=== PATIENT | male | born 1980 | race Caucasian/White ===

== ENCOUNTER → 2017-04-24 | Outpatient (CLI) | payer BC ==
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
== END ==
LOC: SLEEP 16:47
PROVIDERS: ATTEND Internal Medicine Critical Care Medicine
DX: G47.10 Hypersomnia, unspecified (principal); Z91.048 Other nonmedicinal substance allergy status
CPT/HCPCS: 99211

== ENCOUNTER → 2019-06-05 | Outpatient (CLI) | payer BC ==
--- NOTE | 2019-06-05 16:04 | MR ---
EXAMINATION TYPE: MR brain wo/w con DATE OF EXAM: 06/05/2019 COMPARISON: CT brain October 25, 2015 HISTORY: Visual disturbance, headache, dizziness and giddiness. Prior head injury with additional sym ptoms of left-sided hearing loss per patient. TECHNIQUE: Multiplanar, multisequence images of the brain and brainstem is performed without and with IV contras t, utilizing 10 mL intravenous Gadavist . FINDINGS: Diffusion weighted images demonstrate no evidence of a recent infarct or other diffusion ab normality. There is no new worrisome extra-axial fluid collection. The ventricular system and ciste rnal spaces are normal in size and appearance. The brain volume is age appropriate. T2*weighted imag es show no suspicious intraparenchymal blood product. Persistent areas of encephalomalacia over the i nferior bilateral frontal lobes axial image 17. There are few tiny scattered foci of T2 hyperintensit y seen throughout the white matter bilaterally. Approximately 12 small scattered lesions are seen. Le sions are nonspecific in appearance and distribution. Suspect smaller infarct inferior left cerebella r hemisphere axial image 5 not significantly changed from prior CT axial image 11. Midline structures demonstrate normal morphology. The craniocervical junction appears within normal limits. Post contrast images demonstrate no abnormal enhancement. The dural venous sinuses appear pa tent. Mild to moderate mucosal thickening involving ethmoid sinuses bilaterally. 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 No suspicious enhancement is seen.
== END ==
LOC: RADMRIMAIN 14:54
PROVIDERS: ATTEND Family Medicine
DX: I63.9 Cerebral infarction, unspecified (principal)
CPT/HCPCS: 70553; A9585

== ENCOUNTER 2020-05-23 14:05 | Inpatient (IN) | payer BC ==
[2020-05-23] MEDS ORDERED: SODIUM CHLORIDE 0.9% 500 ML 500 ML IV STA (14:16)
[2020-05-23 14:34] LABS: Basophils # (A) 0.1 k/uL (0-0.2); Basophils % (A) 0 %; Eosinophils # (A) 0.3 k/uL (0-0.7); Eosinophils % (A) 2 %; HCT 40.2 % (39.0-53.0); HGB 13.5 gm/dL (13.0-17.5); Lymphocytes # (A) 1.6 k/uL (1.0-4.8); Lymphocytes % (A) 10 %; MCH 29.2 pg (25.0-35.0); MCHC 33.7 g/dL (31.0-37.0); MCV 86.8 fL (80.0-100.0); Mean Platelet Volume 7.5; Monocytes # (A) 0.8 k/uL (0-1.0); Monocytes % (A) 5 %; Neutrophils # (A) 13.3 k/uL (1.3-7.7); Neutrophils % (A) 82 %; Platelet Count 302 k/uL (150-450); RBC 4.63 m/uL (4.30-5.90); RDW 11.6 % (11.5-15.5); WBC 16.2 k/uL (3.8-10.6)
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
[2020-05-23 14:46] LABS: ALT 18 U/L (4-49); AST 27 U/L (17-59); African American GFR (CKD) >90 (>60 ml/min/1.73 sqM); Albumin 3.9 g/dL (3.5-5.0); Alkaline Phosphatase 91 U/L (38-126); Anion Gap 7 mmol/L; Blood Urea Nitrogen 14 mg/dL (9-20); Calcium 8.6 mg/dL (8.4-10.2); Carbon Dioxide 28 mmol/L (22-30); Chloride 102 mmol/L (98-107); Glucose 124 mg/dL (74-99); Non-African American GFR(CKD) >90 (>60 ml/min/1.73 sqM); Potassium 4.1 mmol/L (3.5-5.1); Sodium 137 mmol/L (137-145); Total Bilirubin 0.8 mg/dL (0.2-1.3); Total Protein 7.6 g/dL (6.3-8.2)
[2020-05-23 14:55] LABS: INR 0.9 (<1.2); Partial Thromboplastin Time 22.2 sec (22.0-30.0); Prothrombin Time 9.9 sec (9.0-12.0)
[2020-05-23] MEDS ORDERED: ASPIRIN 81 MG PO STA (14:55)
[2020-05-23] MEDS ORDERED: MORPHINE SULFATE 4 MG/ML SYRINGE IV STA (14:55)
--- NOTE | 2020-05-23 15:17 | CT ---
EXAMINATION TYPE: CT chest angio for PE DATE OF EXAM: 05/23/2020 COMPARISON: None HISTORY: Upper Abdominal pain with shortness of breath. CT DLP: 525.7 mGycm Automated exposure control for dose reduction was used. CONTRAST: Performed with IV Contrast, patient injected with 100 mL of Isovue 370. There are 3-D post processed images. There is left pleural effusion. There is airspace patchy consolidation left lower lobe. There is no p ericardial effusion. There is no mediastinal adenopathy. Thoracic aorta is intact. There is no aneurysm or dissection. There is normal contrast opacification of the pulmonary arteries. There are no filling defects. The bony thorax is intact. Sternum is intact. Upper abdominal soft tissues are intact. IMPRESSION: No evidence of pulmonary embolism. Left lower lobe pneumonia and left pleural effusion. Minimal atele ctasis right posterior lung base.
--- NOTE | 2020-05-23 15:21 | CT ---
EXAMINATION TYPE: CT abdomen pelvis w con DATE OF EXAM: 05/23/2020 COMPARISON: None HISTORY: Upper Abdominal pain with shortness of breath. CT DLP: 1369.9 mGycm Automated exposure control for dose reduction was used. CONTRAST: Performed with IV Contrast, patient injected with 100 mL of Isovue 370. Images obtained from the diaphragm to the floor the pelvis with IV contrast. There is some patchy left lower lobe consolidation. There is mild left pleural effusion. There is antonio e mild atelectasis right posterior lung base. Liver shows no focal defect. Gallbladder appears normal. Spleen is intact. There is no evidence of pa ncreatic mass. Stomach appears intact. There is no adrenal mass. Kidneys show satisfactory contrast opacification. There is no hydronephrosi s. Ureters are not dilated. There is no retroperitoneal adenopathy. The bladder distends smoothly. Th ere is no inguinal hernia. There is no free fluid in the pelvis. There is no mesenteric edema. There is no ascites or free air. Appendix appears normal. There is no evidence of a bowel obstruction. The lumbar vertebra have normal spacing and alignment. There is no compression fracture. Posterior el ements are intact. Bony pelvis is intact. Hip joints appear normal. IMPRESSION: Left lower lobe pneumonia and left pleural effusion. No abnormality within the abdomen and pelvis.
[2020-05-23] MEDS ORDERED: AZITHROMYCIN 500 MG TAB PO STA (15:26)
[2020-05-23] MEDS ORDERED: IBUPROFEN 400 MG TAB PO PRN (16:13)
[2020-05-23] MEDS ORDERED: NALOXONE 0.4 MG/ML 1 ML VIAL IV PRN (16:13)
[2020-05-23] MEDS: SODIUM CHLORIDE 0.9% 1,000 ML IV SCH ×2 (16:46→22:11)
[2020-05-23] MEDS ORDERED: MORPHINE SULFATE 4 MG/ML SYRINGE IV PRN (17:35)
[2020-05-23] MEDS ORDERED: ONDANSETRON 4 MG/2 ML VIAL IVP PRN (17:35)
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
[2020-05-23] MEDS: ACETAMINOPHEN TAB 325 MG TAB PO PRN (18:54)
[2020-05-24] MEDS: KETOROLAC 15 MG/ML 1 ML VIAL IVP PRN ×3 (03:36→16:26)
[2020-05-24] MEDS: CITALOPRAM HYDROBROMIDE 20 MG TAB PO SCH (07:52)
[2020-05-24] MEDS: PANTOPRAZOLE 40 MG TABLET PO SCH (07:53)
[2020-05-24] MEDS: HEPARIN SODIUM,PORCINE 5,000 UNIT/ML 1 ML VIAL SQ SCH ×2 (07:55→20:47)
[2020-05-24] MEDS: IPRATROPIUM-ALBUTEROL 3 ML NEB INHALATION PRN ×4 (08:05→19:50)
[2020-05-24] MEDS: ACETAMINOPHEN TAB 325 MG TAB PO PRN ×3 (08:45→20:47)
--- NOTE | 2020-05-24 09:08 | XR ---
EXAMINATION TYPE: XR chest 1V portable DATE OF EXAM: 05/24/2020 COMPARISON: 10/25/2015 HISTORY: Chest pain TECHNIQUE: Single frontal view of the chest is obtained. FINDINGS: There is left perihilar and left basilar infiltrate with its underlying effusion noted as well. The r ight lung is clear. The cardiac silhouette size is within normal limits. The osseous structures are intact. IMPRESSION: 1. Correlate for underlying pneumonia.
[2020-05-24 09:20] LABS: Basophils % (A) 0 %; Eosinophils # (A) 0.1 k/uL (0-0.7); Eosinophils % (A) 1 %; HGB 12.5 gm/dL (13.0-17.5); Lymphocytes % (A) 6 %; MCH 29.7 pg (25.0-35.0); MCHC 33.8 g/dL (31.0-37.0); MCV 87.9 fL (80.0-100.0); Mean Platelet Volume 7.6; Monocytes # (A) 0.6 k/uL (0-1.0); Monocytes % (A) 4 %; Neutrophils # (A) 14.5 k/uL (1.3-7.7); Neutrophils % (A) 89 %; Platelet Count 229 k/uL (150-450); RBC 4.21 m/uL (4.30-5.90); RDW 12.2 % (11.5-15.5); WBC 16.4 k/uL (3.8-10.6)
[2020-05-24 09:29] LABS: African American GFR (CKD) >90 (>60 ml/min/1.73 sqM); Anion Gap 6 mmol/L; Blood Urea Nitrogen 16 mg/dL (9-20); Calcium 8.3 mg/dL (8.4-10.2); Carbon Dioxide 29 mmol/L (22-30); Chloride 100 mmol/L (98-107); Glucose 175 mg/dL (74-99); Non-African American GFR(CKD) >90 (>60 ml/min/1.73 sqM); Potassium 4.3 mmol/L (3.5-5.1); Sodium 135 mmol/L (137-145)
[2020-05-24] MEDS: SODIUM CHLORIDE 0.9% 1,000 ML IV SCH (10:25)
[2020-05-24] MEDS: AZITHROMYCIN 500 MG TAB PO SCH (12:00)
--- NOTE | 2020-05-24 12:49 | P.PN ---
Subjective Progress Note Date: 05/24/20 Principal diagnosis: Community-acquired pneumonia Patient is doing well today. He still complaining of some shortness of breath. He denies fevers or chills. No acute events overnight reported by nursing staff. Objective - Vital Signs Vital signs: Vital Signs Temp 98.9 F 05/24/20 07:51 Pulse 68 05/24/20 11:52 Resp 18 05/24/20 07:51 BP 118/69 05/24/20 07:51 Pulse Ox 95 05/24/20 03:00 Intake & Output 05/23/20 05/24/20 05/24/20 18:59 06:59 18:59 Intake Total 850 150 Balance 850 150 Weight 97.522 kg Intake: Intake, IV Titration 850 150 Amount Sodium Chloride 0.9% 1, 100 000 ml @ 100 mls/hr IV . Q10H [facility] Rx#:[id number] cefTRIAXone 1 gm In 50 Sodium Chloride 0.9% 50 ml @ 100 mls/hr IVPB [facility] Rx#:[id number] cefTRIAXone 1 gm In 800 50 Sodium Chloride 0.9% 50 ml @ 100 mls/hr IVPB Q24HR [facility] Rx#:[id number] Other: Voiding Method Toilet Toilet # Voids 1 1 1 - Exam General: The patient is awake and alert, in no distress Eye: there is normal conjunctiva bilaterally. Neck: The neck is supple, there is no JVD. Cardiovascular: Normal S1-S2, no S3-S4, no murmurs. Respiratory: Lungs are slightly diminished with no wheezing or crackles Gastrointestinal: Abdomen is soft, nontender Musculoskeletal: There is no pedal edema. Neurological:. Speech is normal. Skin: Skin is warm and dry - Labs CBC & Chem 7: 05/24/20 09:00 05/24/20 09:00 Labs: Abnormal Lab Results - Last 24 Hours (Table) 05/23/20 05/23/20 05/24/20 Range/Units 14:20 14:20 09:00 WBC 16.2 H 16.4 H (3.8-10.6) k/uL RBC 4.21 L (4.30-5.90) m/uL Hgb 12.5 L (13.0-17.5) gm/dL Hct 37.0 L (39.0-53.0) % Neutrophils # 13.3 H 14.5 H (1.3-7.7) k/uL Sodium (137-145) mmol/L Glucose 124 H (74-99) mg/dL Calcium (8.4-10.2) mg/dL 05/24/20 Range/Units 09:00 WBC (3.8-10.6) k/uL RBC (4.30-5.90) m/uL Hgb (13.0-17.5) gm/dL Hct (39.0-53.0) % Neutrophils # (1.3-7.7) k/uL Sodium 135 L (137-145) mmol/L Glucose 175 H (74-99) mg/dL Calcium 8.3 L (8.4-10.2) mg/dL Assessment and Plan Assessment: This is a 39-year-old male with past medical history noted below who presented to the emergency room with left-sided chest pain and shortness of breath. Patient was evaluated in the ER and currently admitted to the hospital for further management of his medical problems noted below. 1. Community-acquired pneumonia, most likely bacterial. Sputum culture sent and pending. Currently on IV ceftriaxone and azithromycin. COVID-19 test pending though clinical suspicion is low 2. Sepsis without septic shock, improved with IV fluid hydration and antibiotic. Lactic acid normal. Blood culture pending. 3. Left pleural effusion: Pulmonology consulted for further evaluation 4. Underlying depression and obstructive sleep apnea: Continue home medications and CPAP at night 5. DVT prophylaxis with subcu heparin Today, I reviewed his medication list and lab work results. Continue current regimen. Discontinue IV fluids. Repeat lab work in the morning. Awaiting pulmonology evaluation.
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
--- NOTE | 2020-05-24 13:16 | P.PN ---
Subjective Progress Note Date: 05/24/20 05/24/2020, the patient is feeling pleuritic left-sided chest pain although less compared to yesterday. His fever is improved. He is producing minimal amount of sputum. He remains on 2 L about 2 by nasal cannula. No altered mentation. No other new complaints otherwise for now. Remains in the same antibiotic coverage including a combination of Zithromax and Rocephin. He is also being given Toradol for his pleuritic left-sided chest pain. He is afebrile this morning at 3 L of oxygen by nasal cannula. Objective - Vital Signs Vital signs: Vital Signs Temp 98.9 F 05/24/20 07:51 Pulse 68 05/24/20 11:52 Resp 18 05/24/20 07:51 BP 118/69 05/24/20 07:51 Pulse Ox 95 05/24/20 03:00 Intake & Output 05/23/20 05/24/20 05/24/20 18:59 06:59 18:59 Intake Total 850 150 Balance 850 150 Weight 97.522 kg Intake: Intake, IV Titration 850 150 Amount Sodium Chloride 0.9% 1, 100 000 ml @ 100 mls/hr IV . Q10H [facility] Rx#:[id number] cefTRIAXone 1 gm In 50 Sodium Chloride 0.9% 50 ml @ 100 mls/hr IVPB ONCE STA Rx#:[id number] cefTRIAXone 1 gm In 800 50 Sodium Chloride 0.9% 50 ml @ 100 mls/hr IVPB Q24HR [facility] Rx#:[id number] Other: Voiding Method Toilet Toilet # Voids 1 1 1 - Exam The patient appeared well nourished and normally developed. Vital signs as doc umented. Head exam is unremarkable. No scleral icterus or corneal arcus noted. Neck is without jugular venous distension, thyromegaly, or carotid bruits. Carotid upstrokes are brisk bilaterally. Lungs are revealing left lower lobe crackles essentially the left lung base along with diminished breath sound left lung base. Cardiac exam reveals the PMI to be normally sized and situated. Rhythm is regular. First and second heart sounds normal. No murmurs, rubs or gallops. Abdominal exam reveals normal bowel sounds, no masses, no organomegaly and no aortic enlargement. Extremities are nonedematous and both femoral and pedal pulses are normal.Examination of the skin revealed no evidence of signifi cant rashes, suspicious appearing nevi or other concerning lesions.Neurologically, the patient is awake and alert and the patient does not have any focal neurological deficit. Cranial nerves are essentially intact. - Labs CBC & Chem 7: 05/24/20 09:00 05/24/20 09:00 Labs: Abnormal Lab Results - Last 24 Hours (Table) 05/23/20 05/23/20 05/24/20 Range/Units 14:20 14:20 09:00 WBC 16.2 H 16.4 H (3.8-10.6) k/uL RBC 4.21 L (4.30-5.90) m/uL Hgb 12.5 L (13.0-17.5) gm/dL Hct 37.0 L (39.0-53.0) % Neutrophils # 13.3 H 14.5 H (1.3-7.7) k/uL Sodium (137-145) mmol/L Glucose 124 H (74-99) mg/dL Calcium (8.4-10.2) mg/dL 05/24/20 Range/Units 09:00 WBC (3.8-10.6) k/uL RBC (4.30-5.90) m/uL Hgb (13.0-17.5) gm/dL Hct (39.0-53.0) % Neutrophils # (1.3-7.7) k/uL Sodium 135 L (137-145) mmol/L Glucose 175 H (74-99) mg/dL Calcium 8.3 L (8.4-10.2) mg/dL Assessment and Plan Plan: 1 left lower lobe pneumonia with secondary sepsis. The patient comes in with acute fever, leukocytosis, left lower lobe consolidation in addition to a small left-sided pleural effusion. No altered mentation. No hypotension Currently on a combination of Rocephin and Zithromax 2 acute leukocytosis 3 acute fever 4 acute hypoxemia currently on 2 L of oxygen by nasal cannula 5 severe sleep apnea with an AHI of 91, currently receiving treatment, the patient is utilizing an APAP on outpatient basis with a minimum pressure of 5 and a maximum pressure of 20 6 history of traumatic brain injury 7 history of depression 8 acid reflux Plan Continue same antibiotic coverage Clinically improving Continue using incentive spirometer Currently afebrile White cell count remains elevated Repeat chest x-ray in the morning We'll continue to follow
[2020-05-24] MEDS ORDERED: AZITHROMYCIN 500 MG in SODIUM CHLORIDE 0.9% 250 ML IVPB SCH (15:00)
[2020-05-24 18:52] LABS: Hemoglobin A1C 5.2 % (4.0-6.0)
[2020-05-25] MEDS: KETOROLAC 15 MG/ML 1 ML VIAL IVP PRN ×4 (01:15→21:07)
[2020-05-25 07:37] LABS: Basophils % (A) 0 %; Eosinophils # (A) 0.1 k/uL (0-0.7); Eosinophils % (A) 1 %; HCT 37.2 % (39.0-53.0); HGB 12.2 gm/dL (13.0-17.5); Lymphocytes # (A) 0.7 k/uL (1.0-4.8); Lymphocytes % (A) 4 %; MCHC 32.8 g/dL (31.0-37.0); MCV 88.4 fL (80.0-100.0); Mean Platelet Volume 7.5; Monocytes # (A) 0.9 k/uL (0-1.0); Monocytes % (A) 5 %; Neutrophils # (A) 16.7 k/uL (1.3-7.7); Neutrophils % (A) 90 %; Platelet Count 247 k/uL (150-450); RDW 12.1 % (11.5-15.5); WBC 18.6 k/uL (3.8-10.6)
[2020-05-25] MEDS: IPRATROPIUM-ALBUTEROL 3 ML NEB INHALATION PRN (07:37)
[2020-05-25] MEDS: CITALOPRAM HYDROBROMIDE 20 MG TAB PO SCH (08:59)
[2020-05-25] MEDS: HEPARIN SODIUM,PORCINE 5,000 UNIT/ML 1 ML VIAL SQ SCH ×3 (09:00→21:12)
[2020-05-25] MEDS: PANTOPRAZOLE 40 MG TABLET PO SCH (09:00)
--- NOTE | 2020-05-25 09:02 | P.DS ---
Providers Date of admission: 05/23/20 16:50 Expected date of discharge: 05/25/20 Attending physician: Tin Lowe MD Consults: 05/23/20 17:35 Consult Physician Routine Consulting Provider: Nicolas Bruce Consult Reason/Comments: PNA, hypoxic respiratory failure Do you want consulting provider notified?: Yes, Notify in am Primary care physician: Katie Herrera [facility] Course: This is a 39-year-old male with past medical history noted below who presented to the emergency room with left-sided chest pain and shortness of breath. Patient was evaluated in the ER and currently admitted to the hospital for further management of his medical problems noted below. 1. Community-acquired pneumonia, most likely bacterial. Sputum culture sent and pending. Started on IV ceftriaxone and azithromycin. COVID-19 test negative. Would finish 7 days course of antibiotic with Keflex and azithromycin 2. Sepsis without septic shock, improved with IV fluid hydration and an tibiotic. Lactic acid normal. Blood culture negative to date 3. Left pleural effusion: Seen and evaluated by pulmonary 4. Underlying depression and obstructive sleep apnea: Continue home medications and CPAP at night Patient will be discharged home in a stable condition. He will follow-up with his PCP regarding final sputum culture results. Patient Condition at Discharge: Stable Plan - Discharge Summary Discharge Rx Participant: No New Discharge Prescriptions: New Azithromycin 250 mg PO DAILY 4 Days #4 tab Cephalexin [Keflex] 500 mg PO Q6HR 6 Days #24 cap Continue Meloxicam [Mobic] 15 mg PO DAILY Citalopram Hydrobromide [Citalopram HBr] 40 mg PO DAILY Omeprazole 20 mg PO DAILY Discharge Medication List Citalopram Hydrobromide [Citalopram HBr] 40 mg PO DAILY 10/25/15 [History] Meloxicam [Mobic] 15 mg PO DAILY 10/25/15 [History] Omeprazole 20 mg PO DAILY 05/23/20 [History] Azithromycin 250 mg PO DAILY 4 Days #4 tab 05/25/20 [Rx] Cephalexin [Keflex] 500 mg PO Q6HR 6 Days #24 cap 05/25/20 [Rx] Follow up Appointment(s)/Referral(s): Katie Herrera MD [Primary Care Provider] - 1-2 days Discharge Disposition: HOME SELF-CARE
[2020-05-25] MEDS: AZITHROMYCIN 500 MG TAB PO SCH (09:06)
--- NOTE | 2020-05-25 10:06 | CT ---
EXAMINATION TYPE: CT chest wo con DATE OF EXAM: 05/25/2020 COMPARISON: 05/23/2020 HISTORY: severe shortness of breath CT DLP: 665.8 mGycm, Automated exposure control for dose reduction was used. CONTRAST: Performed injected with 0 mL of Isovue 370. TECHNIQUE: Axial images were obtained at 5 mm thick sections. Reconstructed images are reviewed on t computer in the coronal plane. FINDINGS: Portion of the thyroid visualized is normal. Left lung field: There is interval development of a large left pleural effusion with compression of t he remaining portions of the lung. Air bronchograms are present. Right lung field: Small amount of infiltrate is in the posterior right lung base likely on the basis of atelectasis. Right lung is otherwise clear. No enlarged mediastinal or hilar adenopathy is evident. The ascending aorta diameter at the level o f the main pulmonary artery is 3.0 cm. The main pulmonary artery diameter at the bifurcation is 2.[address] sections are obtained through the upper abdomen. Abdomen is essentially unremarkable. IMPRESSIONS: 1. Interval development of a large left pleural effusion with adjacent compressive atelectasis of the remaining left lung. 2. Minimal compressive atelectasis dependent posterior right lung base.
--- NOTE | 2020-05-25 11:08 | P.PN ---
Subjective Progress Note Date: 05/25/20 05/25/2020, the patient is being seen in follow-up. Zyrtec chest pain on the left is improved. Nevertheless, the patient's is still short of breath on the patient is having low-grade fever. He remains on a combination of Rocephin and Zithromax. The breath sounds on examination are quite diminished on the left. Based on that, CAT scan of the chest was ordered without contrast on the CAT scan showed interval development of a large loculated left-sided pleural effusion with adjacent compressive atelectasis. Minimal atelectasis in the right lung base also. There is significant consolidation of the left lower lobe in addition. The pleural effusion on the left is loculated and there is air bronchograms. The white cell count remains elevated at 18.6. Troponins are negative. COVID 19 testing was negative. Objective - Vital Signs Vital signs: Vital Signs Temp 99.9 F H 05/25/20 08:53 Pulse 123 H 05/25/20 08:56 Resp 16 05/25/20 09:00 BP 120/69 05/25/20 08:53 Pulse Ox 89 L 05/25/20 08:56 Intake & Output 05/24/20 05/25/20 05/25/20 18:59 06:59 18:59 Intake Total 2650 Balance 2650 Intake: Intake, IV Titration 450 Amount Sodium Chloride 0.9% 1, 400 000 ml @ 100 mls/hr IV . Q10H [facility] Rx#:[id number] cefTRIAXone 1 gm In 50 Sodium Chloride 0.9% 50 ml @ 100 mls/hr IVPB Q24HR [facility] Rx#:[id number] Oral 2200 Other: Voiding Method Toilet # Voids 3 1 1 - Exam The patient appeared well nourished and normally developed. Vital signs as documented. Head exam is unremarkable. No scleral icterus or corneal arcus noted. Neck is without jugular venous distension, thyromegaly, or carotid bruits. Carotid upstrokes are brisk bilaterally. Lungs are revealing left lower lobe crackles essentially the left lung base along with diminished breath sound left lung base. Cardiac exam reveals the PMI to be normally sized and situated. Rhythm is regular. First and second heart sounds normal. No murmurs, rubs or gallops. Abdominal exam reveals normal bowel sounds, no masses, no organomegaly and no aortic enlargement. Extremities are nonedematous and both femoral and pedal pulses are normal.Examination of the skin revealed no evidence of significant rashes, suspicious appearing nevi or other concerning lesions.Neurologically, the patient is awake and alert and the patient does not have any focal neurological deficit. Cranial nerves are essentially intact. - Labs CBC & Chem 7: 05/25/20 07:14 05/24/20 09:00 Labs: Abnormal Lab Results - Last 24 Hours (Table) 05/25/20 Range/Units 07:14 WBC 18.6 H (3.8-10.6) k/uL RBC 4.20 L (4.30-5.90) m/uL Hgb 12.2 L (13.0-17.5) gm/dL Hct 37.2 L (39.0-53.0) % Neutrophils # 16.7 H (1.3-7.7) k/uL Lymphocytes # 0.7 L (1.0-4.8) k/uL Microbiology - Last 24 Hours (Table) 05/24/20 11:38 Gram Stain - Preliminary Sputum Sputum Culture - Preliminary 05/23/20 16:44 Blood Culture - Preliminary Blood No Growth after 24 hours Assessment and Plan Plan: 1 left lower lobe pneumonia with secondary sepsis. The patient has extensive consolidation of the left lower lobe in addition to that there is a moderate- sized loculated left-sided pleural effusion that has developed on follow-up CAT scan of the chest. Continues to have low-grade fever. White cell count remains elevated at 18.6. Rule out a complicated parapneumonic left-sided pleural effusion. 2 acute leukocytosis, white cell count is 18 3 acute fever 4 acute hypoxemia currently on 2 L of oxygen by nasal cannula 5 severe sleep apnea with an AHI of 91, currently receiving treatment, the patient is utilizing an APAP on outpatient basis with a minimum pressure of 5 and a maximum pressure of 20 6 history of traumatic brain injury 7 history of depression 8 acid reflux Plan Continue same antibiotic coverage We'll consult interventional radiology for a pigtail catheter insertion. If the drainage of the fluid is incomplete, the patient will need TPN administration for any loculated residual pleural effusions. Continue Rocephin and Zithromax Continues incentive spirometer We'll continue to follow
[2020-05-25] MEDS: ACETAMINOPHEN TAB 325 MG TAB PO PRN (11:25)
--- NOTE | 2020-05-25 16:00 | CT ---
EXAMINATION TYPE: CT chest tube insertion DATE OF EXAM: 05/25/2020 COMPARISON: CT chest 05/25/2020 HISTORY: left sided chest tube insertion CT DLP: 1434 mGycm The procedure is discussed with the patient, the risks, complications, benefits and alternatives, wer e discussed and any questions were answered. Informed consent was obtained. The patient is placed p marline on the CT table, prepped and draped in the usual sterile fashion. Utilizing a 22-gauge Chiba needle access into the pleural space was achieved. Pathology placement 0. 018 wire. Conversion to an 0.035 system, serial dilation 8 [place] and placement 8.5 drainage catheter . Repeat imaging demonstrated ideal placement of catheter. Samples obtained and sent to pathology. All elements of maximal barrier and sterile technique were utilized. The patient remained stable thr oughout the procedure with no immediate postprocedural complication. IMPRESSION: 1. Successful CT guided chest tube insertion
[2020-05-25 20:32] LABS: Appearance,BF Cloudy; Color,BF Yellow; Nucleated Cells, Body Fluid 5115 /uL; RBC, Body Fluid 5395 /uL
[2020-05-25 20:45] LABS: Mononuclear WBC,Body Fluid 40 %; Polynuclear WBC,Body Fluid 60 %; Total Cells Counted,Body Fluid 100
[2020-05-26 04:25] LABS: Glucose, BF Source Pleural Fluid; Glucose, Body Fluid <4 mg/dL; LDH, Body Fluid Source Pleural Fluid
[2020-05-26 05:59] LABS: Basophils % (A) 0 %; Eosinophils # (A) 0.2 k/uL (0-0.7); Eosinophils % (A) 1 %; HCT 35.7 % (39.0-53.0); HGB 11.7 gm/dL (13.0-17.5); Lymphocytes # (A) 0.9 k/uL (1.0-4.8); Lymphocytes % (A) 5 %; MCH 29.2 pg (25.0-35.0); MCHC 32.7 g/dL (31.0-37.0); MCV 89.2 fL (80.0-100.0); Mean Platelet Volume 8.4; Monocytes % (A) 5 %; Neutrophils # (A) 15.2 k/uL (1.3-7.7); Neutrophils % (A) 87 %; Platelet Count 264 k/uL (150-450); RDW 12.1 % (11.5-15.5); WBC 17.4 k/uL (3.8-10.6)
[2020-05-26] MEDS: PANTOPRAZOLE 40 MG TABLET PO SCH (07:15)
[2020-05-26] MEDS: CITALOPRAM HYDROBROMIDE 20 MG TAB PO SCH (07:16)
[2020-05-26] MEDS: HEPARIN SODIUM,PORCINE 5,000 UNIT/ML 1 ML VIAL SQ SCH ×2 (07:16→21:33)
[2020-05-26] MEDS: AZITHROMYCIN 500 MG TAB PO SCH (07:16)
[2020-05-26] MEDS: metroNIDAZOLE-NS PMX 500 MG in SALINE 1 100ML.BAG IVPB SCH ×3 (09:07→23:34)
--- NOTE | 2020-05-26 11:36 | XR ---
EXAMINATION TYPE: XR chest 2V DATE OF EXAM: 05/26/2020 COMPARISON: Prior chest x-ray dated 05/24/2020 HISTORY: Pleural effusion, pneumonia, chest tube TECHNIQUE: Frontal and lateral views of the chest are obtained. FINDINGS: Pigtail catheter is present in the posterior left chest. Increasing density within the lef t hemithorax is noted, minimal aerated lung is present. No pneumothorax. Right lung show some minimal effusion. Heart is obscured. IMPRESSION: Progression of left pleural effusion and associated atelectasis, correlate to exclude pn eumonia, follow-up to resolution to exclude underlying mass
--- NOTE | 2020-05-26 11:50 | P.PN ---
Subjective Progress Note Date: 05/26/20 Principal diagnosis: Left lower lobe pneumonia with secondary sepsis, and complicated parapneumonic left-sided pleural effusion On 05/26/2020 patient seen in follow-up on medical surgical floor, yesterday we had the interventional radiology consulted for insertion of pigtail catheter for a complicated parapneumonic left-sided pleural effusion, pleural fluid was sent for analysis, showed exudative fluid with low glucose, high protein, consistent with empyema. Pleural fluid cultures are negative thus far, patient remains on azithromycin and Rocephin for antibiotic coverage, Flagyl was added, he is on room air, pulse oximetry 93%, blood pressure stable, no fever, his breathing is nonlabored, there is better and entry noted at the left lower base, no cough, no signs of any respiratory distress, today's chest x-ray is pending. His white count is trending down, 17.4 on today's labs, hemoglobin is 11.7. Objective - Vital Signs Vital signs: Vital Signs Temp 98.5 F 05/26/20 07:00 Pulse 100 05/26/20 07:00 Resp 16 05/26/20 07:15 BP 131/80 05/26/20 07:00 Pulse Ox 93 L 05/26/20 07:00 Intake & Output 05/25/20 05/26/20 05/26/20 18:59 06:59 18:59 Intake Total 100 Output Total 100 40 Balance -100 60 Intake: Oral 100 Output: Chest Tube Drainage 100 40 Pleural Catheter Left 100 40 Other: Voiding Method Toilet # Voids 1 1 - Exam GENERAL EXAM: Alert, very pleasant, 39-year-old white male, sitting up in the bed, on room air, with pulse ox of 93% HEAD: Normocephalic/atraumatic. EYES: Normal reaction of pupils, equal size. Conjunctiva pink, sclera white. NOSE: Clear with pink turbinates. THROAT: No erythema or exudates. NECK: No masses, no JVD, no thyroid enlargement, no adenopathy. CHEST: No chest wall deformity. Symmetrical expansion. Left chest pigtail catheter connected to Pleur-evac, to wall suction, with approximately 140 mL of cloudy serous fluid in the atrium. LUNGS: Equal air entry with no crackles, wheeze, rhonchi or dullness. CVS: Regular rate and rhythm, normal S1 and S2, no gallops, no murmurs, no rubs ABDOMEN: Soft, nontender. No hepatosplenomegaly, normal bowel sounds, no guarding or rigidity. EXTREMITIES: No clubbing, no edema, no cyanosis, 2+ pulses and upper and lower extremities. MUSCULOSKELETAL: Muscle strength and tone normal. SPINE: No scoliosis or deformity SKIN: No rashes CENTRAL NERVOUS SYSTEM: Alert and oriented -3. No focal deficits, tone is normal in all 4 extremities. PSYCHIATRIC: Alert and oriented -3. Appropriate affect. Intact judgment and insight. - Labs CBC & Chem 7: 05/26/20 05:26 05/24/20 09:00 Labs: Abnormal Lab Results - Last 24 Hours (Table) 05/26/20 Range/Units 05:26 WBC 17.4 H (3.8-10.6) k/uL RBC 4.00 L (4.30-5.90) m/uL Hgb 11.7 L (13.0-17.5) gm/dL Hct 35.7 L (39.0-53.0) % Neutrophils # 15.2 H (1.3-7.7) k/uL Lymphocytes # 0.9 L (1.0-4.8) k/uL Microbiology - Last 24 Hours (Table) 05/25/20 15:30 Body Fluid Culture - Preliminary Pleural Fluid 05/24/20 11:38 Gram Stain - Final Sputum Sputum Culture - Final 05/25/20 15:30 Fungal Culture - Preliminary Pleural Fluid 05/25/20 15:30 Acid Fast Bacilli Culture - Preliminary Pleural Fluid 05/25/20 15:30 Anaerobic Culture - Preliminary Pleural Fluid 05/23/20 16:44 Blood Culture - Preliminary Blood No Growth after 48 hours Assessment and Plan Plan: Assessment: 1 left lower lobe pneumonia with secondary sepsis. The patient has extensive consolidation of the left lower lobe in addition to that there is a moderate- sized loculated left-sided pleural effusion that has developed on follow-up CAT scan of the chest, with persistent fevers, leukocytosis, status post left chest pigtail chest tube insertion, with drainage of approximately 140 mL of cloudy serous fluid which was exudative in nature 2 acute leukocytosis, white cell count is 18 3 acute fever 4 acute hypoxemia currently on 2 L of oxygen by nasal cannula 5 severe sleep apnea with an AHI of 91, currently receiving treatment, the patient is utilizing an APAP on outpatient basis with a minimum pressure of 5 and a maximum pressure of 20 6 history of traumatic brain injury 7 history of depression 8 acid reflux Plan: We'll obtain follow-up chest x-ray today, we will consult CT surgery for possibility of TPA infusion into the left chest pigtail. Cultures remain negative thus far, continue with current hematocrit, hemodynamically stable, no fever, encourage deep breathing and coughing, daily chest x-ray daily labs I performed a history & physical examination of the patient and discussed their management with my nurse practitioner, Korin Gaona. I reviewed the nurse practitioner's note and agree with the documented findings and plan of care. Lung sounds are positive for diminished breath sounds. The findings and the impression was discussed with the patient. I attest to the documentation by the nurse practitioner. Time with Patient: Less than 30
--- NOTE | 2020-05-26 13:03 | P.PN ---
Subjective Progress Note Date: 05/26/20 Principal diagnosis: Community-acquired pneumonia The shunt is feeling well today. He denies any shortness of breath. He had a low-grade fever last night. Objective - Vital Signs Vital signs: Vital Signs Temp 98.5 F 05/26/20 07:00 Pulse 100 05/26/20 07:00 Resp 16 05/26/20 07:15 BP 131/80 05/26/20 07:00 Pulse Ox 93 L 05/26/20 07:00 Intake & Output 05/25/20 05/26/20 05/26/20 18:59 06:59 18:59 Intake Total 100 Output Total 100 40 Balance -100 60 Intake: Oral 100 Output: Chest Tube Drainage 100 40 Pleural Catheter Left 100 40 Other: Voiding Method Toilet # Voids 1 1 - Exam General: The patient is awake and alert, in no distress Eye: there is normal conjunctiva bilaterally. Neck: The neck is supple, there is no JVD. Cardiovascular: Normal S1-S2, no S3-S4, no murmurs. Respiratory: Lungs are slightly diminished with no wheezing or crackles Gastrointestinal: Abdomen is soft, nontender Musculoskeletal: There is no pedal edema. Neurological:. Speech is normal. Skin: Skin is warm and dry - Labs CBC & Chem 7: 05/26/20 05:26 05/24/20 09:00 Labs: Abnormal Lab Results - Last 24 Hours (Table) 05/26/20 Range/Units 05:26 WBC 17.4 H (3.8-10.6) k/uL RBC 4.00 L (4.30-5.90) m/uL Hgb 11.7 L (13.0-17.5) gm/dL Hct 35.7 L (39.0-53.0) % Neutrophils # 15.2 H (1.3-7.7) k/uL Lymphocytes # 0.9 L (1.0-4.8) k/uL Microbiology - Last 24 Hours (Table) 05/25/20 15:30 Body Fluid Culture - Preliminary Pleural Fluid 05/24/20 11:38 Gram Stain - Final Sputum Sputum Culture - Final 05/25/20 15:30 Fungal Culture - Preliminary Pleural Fluid 05/25/20 15:30 Acid Fast Bacilli Culture - Preliminary Pleural Fluid 05/25/20 15:30 Anaerobic Culture - Preliminary Pleural Fluid 05/23/20 16:44 Blood Culture - Preliminary Blood No Growth after 48 hours Assessment and Plan Assessment: This is a 39-year-old male with past medical history noted below who presented to the emergency room with left-sided chest pain and shortness of breath. Patient was evaluated in the ER and currently admitted to the hospital for further management of his medical problems noted below. 1. Community-acquired pneumonia: Started on IV ceftriaxone and azithromycin since admission. Sputum culture with normal juanita. Covid 19 test negative. I added IV Flagyl on 05/26 given left empyema 2. Left parapneumonic effusion/empyema: CT of the chest on 05/25 showed interval development of a large pleural effusion status post left chest tube/pigtail insertion on 05/25 with approximately 140 ml of cloudy serous fluid drained in the last 24 hours. Fluid cultures pending. Repeat chest x-ray today showed progression of left pleural effusion and atelectasis. CT surgery consulted for further evaluation. 3. Sepsis without septic shock, improved with IV fluid hydration and antibiotic. Lactic acid normal. Blood culture negative 4. Underlying depression and obstructive sleep apnea: Continue home medications and CPAP at night 5. DVT prophylaxis with subcu heparin Today, I reviewed his medication list and lab work results. Continue current regimen. Appreciate polymer materials consultant's recommendations.
[2020-05-26] MEDS ORDERED: ALTEPLASE 10 MG in SODIUM CHLORIDE 0.9% 100 ML IRRIGATION ONE (15:00)
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
[2020-05-26] MEDS: MORPHINE SULFATE 2 MG/ML SYRINGE IVP PRN ×2 (18:06→21:33)
[2020-05-26] MEDS: ACETAMINOPHEN TAB 325 MG TAB PO PRN (19:45)
[2020-05-27] MEDS: MORPHINE SULFATE 2 MG/ML SYRINGE IVP PRN ×2 (02:55→18:11)
[2020-05-27 06:47] LABS: Basophils % (A) 0 %; Eosinophils # (A) 0.1 k/uL (0-0.7); Eosinophils % (A) 1 %; HCT 39.9 % (39.0-53.0); Lymphocytes # (A) 0.8 k/uL (1.0-4.8); Lymphocytes % (A) 4 %; MCH 29.1 pg (25.0-35.0); MCHC 32.7 g/dL (31.0-37.0); MCV 89.1 fL (80.0-100.0); Mean Platelet Volume 7.2; Monocytes # (A) 1.1 k/uL (0-1.0); Monocytes % (A) 6 %; Neutrophils # (A) 16.5 k/uL (1.3-7.7); Neutrophils % (A) 88 %; Platelet Count 326 k/uL (150-450); RBC 4.48 m/uL (4.30-5.90); RDW 12.1 % (11.5-15.5); WBC 18.7 k/uL (3.8-10.6)
--- NOTE | 2020-05-27 06:56 | XR ---
EXAMINATION TYPE: XR chest 2V DATE OF EXAM: 05/27/2020 COMPARISON: Chest x-ray from yesterday. CT chest from 2 days ago. HISTORY: Left-sided empyema. TECHNIQUE: Frontal and lateral views of the chest are obtained. FINDINGS: There is redemonstration of posterior lower pigtail pleural drainage catheter. Marked inte rval improvement in the lateral left pleural fluid collection. Persistent left mid to basilar opacity . Right lung shows stable small to tiny pleural effusion. No mediastinal shift. The cardiac silhouet te size remains within normal limits. Overlying EKG leads redemonstrated. The osseous structures are intact. IMPRESSION: Interval improvement in left-sided pleural fluid collection. Persistent left mid to lowe r lung acute infiltrate and/or atelectasis and likely small residual pleural fluid collection.
[2020-05-27] MEDS: metroNIDAZOLE-NS PMX 500 MG in SALINE 1 100ML.BAG IVPB SCH (07:26)
[2020-05-27] MEDS: PANTOPRAZOLE 40 MG TABLET PO SCH (07:26)
[2020-05-27] MEDS: HEPARIN SODIUM,PORCINE 5,000 UNIT/ML 1 ML VIAL SQ SCH ×2 (08:51→21:17)
[2020-05-27] MEDS: CITALOPRAM HYDROBROMIDE 20 MG TAB PO SCH (08:51)
[2020-05-27] MEDS: AZITHROMYCIN 500 MG TAB PO SCH (08:51)
[2020-05-27 09:48] LABS: African American GFR (CKD) 135.9 (60.0-200.0); Anion Gap 10.9 mmol/L (4.00-12.00); BUN/Creat Ratio 22.86 Ratio (12.00-20.00); Calcium 8.6 mg/dL (8.7-10.3); Carbon Dioxide 26.1 mmol/L (21.6-31.8); Non-African American GFR(CKD) 117.2 (60.0-200.0); Potassium 4.6 mmol/L (3.5-5.5)
--- NOTE | 2020-05-27 10:02 | P.PN ---
Subjective Progress Note Date: 05/27/20 Principal diagnosis: Community-acquired pneumonia Patient is doing fairly well today. Repeat chest x-ray showed interval improvement in left-sided pleural effusion. He received TPA by thoracic surgery yesterday. Objective - Vital Signs Vital signs: Vital Signs Temp 98.3 F 05/27/20 07:00 Pulse 83 05/27/20 07:00 Resp 16 05/27/20 07:00 BP 111/72 05/27/20 07:00 Pulse Ox 95 05/27/20 07:00 Intake & Output 05/26/20 05/27/20 05/27/20 18:59 06:59 18:59 Intake Total 100 Output Total 570 1350 Balance -570 -1250 Intake: Intake, IV Titration 100 Amount metroNIDAZOLE-NS PMX 500 100 mg In Saline 1 100ml.bag @ 100 mls/hr IVPB Q8HR [facility] Rx#:[id number] Output: Chest Tube Drainage 570 1350 Pleural Catheter Left 570 1350 Other: Voiding Method Toilet # Voids 1 - Exam General: The patient is awake and alert, in no distress Eye: there is normal conjunctiva bilaterally. Neck: The neck is supple, there is no JVD. Cardiovascular: Normal S1-S2, no S3-S4, no murmurs. Respiratory: Lungs are slightly diminished with no wheezing or crackles. Chest tube in place Gastrointestinal: Abdomen is soft, nontender Musculoskeletal: There is no pedal edema. Neurological:. Speech is normal. Skin: Skin is warm and dry - Labs CBC & Chem 7: 05/27/20 06:08 05/27/20 06:08 Labs: Abnormal Lab Results - Last 24 Hours (Table) 05/27/20 05/27/20 Range/Units 06:08 06:08 WBC 18.7 H (3.8-10.6) k/uL Neutrophils # 16.5 H (1.3-7.7) k/uL Lymphocytes # 0.8 L (1.0-4.8) k/uL Monocytes # 1.1 H (0-1.0) k/uL BUN/Creatinine Ratio 22.86 H (12.00-20.00) Ratio Glucose 115 H (70-110) mg/dL Calcium 8.6 L (8.7-10.3) mg/dL Microbiology - Last 24 Hours (Table) 05/25/20 15:30 Gram Stain - Preliminary Pleural Fluid Body Fluid Culture - Preliminary 05/23/20 16:44 Blood Culture - Preliminary Blood No Growth after 72 hours 05/25/20 15:30 Acid Fast Bacilli Smear - Final Pleural Fluid Acid Fast Bacilli Culture - Preliminary 05/24/20 11:38 Gram Stain - Final Sputum Sputum Culture - Final Assessment and Plan Assessment: This is a 39-year-old male with past medical history noted below who presented to the emergency room with left-sided chest pain and shortness of breath. Patient was evaluated in the ER and currently admitted to the hospital for further management of his medical problems noted below. 1. Community-acquired pneumonia: Started on IV ceftriaxone and azithromycin since admission. Sputum culture with normal juanita. Covid 19 test negative. I added IV Flagyl on 05/26 given left empyema 2. Left parapneumonic effusion/empyema: CT of the chest on 05/25 showed interval development of a large pleural effusion status post left chest tube/pigtail insertion on 05/25 with approximately 140 ml of cloudy serous fluid drained. Status post TPA on 05/26. Fluid cultures pending. Repeat chest x-ray on 05/27 showed interval improvement in the left-sided effusion. Pulmonary and thoracic surgery following closely, appreciate recommendations. 3. Sepsis without septic shock, improved with IV fluid hydration and antibiotic. Lactic acid normal. Blood culture negative 4. Underlying depression and obstructive sleep apnea: Continue home medications and CPAP at night 5. DVT prophylaxis with subcu heparin Today, I reviewed his medication list and lab work results. Continue current regimen. Appreciate retail consultant's recommendations. Repeat chest x-ray in the morning.
[2020-05-27] MEDS ORDERED: ALTEPLASE 10 MG in SODIUM CHLORIDE 0.9% 100 ML IRRIGATION ONE (10:30)
--- NOTE | 2020-05-27 12:18 | P.PN ---
Subjective Progress Note Date: 05/27/20 Principal diagnosis: Left lower lobe pneumonia with secondary sepsis,, located parapneumonic left- sided pleural effusion The patient is seen today 05/27/2020 in follow-up on the regular medical floor. He is awake and alert in no acute distress. He is status post pigtail catheter insertion. Fluid is exudative in nature. Total protein 4.2. LDH 2760. He did receive alteplase infusion yesterday and had 1.9 L output. Continues to drain today. Plan is for repeat alteplase infusion. He denies any worsening shortness of breath, cough or congestion. Fluid fluid cultures are pending. White count 18.7. Hemoglobin 13.0. Sodium 130. Potassium 4.6. Creatinine 0.7. He remains on ceftriaxone, azithromycin and metronidazole. Objective - Vital Signs Vital signs: Vital Signs Temp 98.3 F 05/27/20 07:00 Pulse 83 05/27/20 07:00 Resp 16 05/27/20 07:00 BP 111/72 05/27/20 07:00 Pulse Ox 95 05/27/20 07:00 Intake & Output 05/26/20 05/27/20 05/27/20 18:59 06:59 18:59 Intake Total 100 Output Total 570 1350 Balance -570 -1250 Intake: Intake, IV Titration 100 Amount metroNIDAZOLE-NS PMX 500 100 mg In Saline 1 100ml.bag @ 100 mls/hr IVPB Q8HR [facility] Rx#:[id number] Output: Chest Tube Drainage 570 1350 Pleural Catheter Left 570 1350 Other: Voiding Method Toilet # Voids 1 - Exam GENERAL EXAM: Alert, active, very pleasant 39-year-old gentleman, on 2 L nasal cannula, comfortable in no apparent distress. HEAD: Normocephalic. EYES: Normal reaction of pupils, equal size. NOSE: Clear with pink turbinates. THROAT: No erythema or exudates. NECK: No masses, no JVD. CHEST: No chest wall deformity. LUNGS: Equal air entry with scattered rhonchi throughout the left lung. CVS: S1 and S2 normal with no audible murmur, regular rhythm. ABDOMEN: No hepatosplenomegaly, normal bowel sounds, no guarding or rigidity. SPINE: No scoliosis or deformity SKIN: No rashes CENTRAL NERVOUS SYSTEM: No focal deficits, tone is normal in all 4 extremities. EXTREMITIES: There is no peripheral edema. No clubbing, no cyanosis. Peripheral pulses are intact. - Labs CBC & Chem 7: 05/27/20 06:08 05/27/20 06:08 Labs: Abnormal Lab Results - Last 24 Hours (Table) 05/27/20 05/27/20 Range/Units 06:08 06:08 WBC 18.7 H (3.8-10.6) k/uL Neutrophils # 16.5 H (1.3-7.7) k/uL Lymphocytes # 0.8 L (1.0-4.8) k/uL Monocytes # 1.1 H (0-1.0) k/uL BUN/Creatinine Ratio 22.86 H (12.00-20.00) Ratio Glucose 115 H (70-110) mg/dL Calcium 8.6 L (8.7-10.3) mg/dL Microbiology - Last 24 Hours (Table) 05/25/20 15:30 Gram Stain - Preliminary Pleural Fluid Body Fluid Culture - Preliminary 05/23/20 16:44 Blood Culture - Preliminary Blood No Growth after 72 hours 05/25/20 15:30 Acid Fast Bacilli Smear - Final Pleural Fluid Acid Fast Bacilli Culture - Preliminary 05/24/20 11:38 Gram Stain - Final Sputum Sputum Culture - Final Assessment and Plan Assessment: 1 left lower lobe pneumonia with secondary sepsis. The patient has extensive consolidation of the left lower lobe in addition to that there is a moderate- sized loculated left-sided pleural effusion that has developed on follow-up CAT scan of the chest, with persistent fevers, leukocytosis, status post left chest pigtail chest tube insertion, with drainage of approximately 140 mL of cloudy serous fluid which was exudative in nature 2 acute leukocytosis, white cell count is 18 3 acute fever 4 acute hypoxemia currently on 2 L of oxygen by nasal cannula 5 severe sleep apnea with an AHI of 91, currently receiving treatment, the patient is utilizing an APAP on outpatient basis with a minimum pressure of 5 and a maximum pressure of 20 6 history of traumatic brain injury 7 history of depression 8 acid reflux Plan: The patient was seen and evaluated by Dr. Bruce Chest x-ray shows significant improvement in the left pleural effusion Pigtail catheter remains in place Alteplase infusion again today Increase his activity as tolerated Continue the use of the incentive spirometer Titrate down the FiO2 as tolerated We will continue to follow and I, the cosigning physician, performed a history & physical examination of the patient. Lungs sounds scattered rhonchi in the left lung base. Maintaining good O2 saturations in the 90s on 2 L/m per nasal cannula. I discussed the assessment and plan of care with my nurse practitioner, Amina Hsieh. I attest to the above note as dictated by her.
--- NOTE | 2020-05-27 13:09 | P.PN ---
Subjective Progress Note Date: 05/27/20 Principal diagnosis: Left lower lobe pneumonia with secondary sepsis, consolidation left lower lobe with moderate sized loculated left sided pleural effusion, acute leukocytosis, fever, acute hypoxemia. Previous medical history of hyperlipidemia, obstructive sleep apnea with home CPAP use, traumatic brain injury, depression POD #2 insertion of left-sided pigtail catheter The patient currently sitting up in a chair in no acute distress. States pain is controlled on current medication regimen, denies shortness of breath. Left- sided pigtail catheter present, connected to atrium. Alteplase instilled yesterday with greater than 2 L return. No new concerns. Objective - Vital Signs Vital signs: Vital Signs Temp 98.3 F 05/27/20 07:00 Pulse 83 05/27/20 07:00 Resp 16 05/27/20 07:00 BP 111/72 05/27/20 07:00 Pulse Ox 95 05/27/20 07:00 Intake & Output 05/26/20 05/27/20 05/27/20 18:59 06:59 18:59 Intake Total 100 Output Total 570 1350 Balance -570 -1250 Intake: Intake, IV Titration 100 Amount metroNIDAZOLE-NS PMX 500 100 mg In Saline 1 100ml.bag @ 100 mls/hr IVPB Q8HR [facility] Rx#:[id number] Output: Chest Tube Drainage 570 1350 Pleural Catheter Left 570 1350 Other: Voiding Method Toilet # Voids 1 - Constitutional General appearance: Present: cooperative, no acute distress - Respiratory Details: Lungs with left lower lobe crackles essentially the left lung base along with diminished breath sound left lung base. Respirations are symmetrical and nonlabored. Oxygen saturation are 95% on 2 L nasal cannula and he is achieving 1000 mL on his incentive spirometry. Left pigtail pleural catheter in place to low continuous wall suction -20 cm H2O. Greater than 2 L fluid in the last 24 hours. - Cardiovascular Details: S1, S2 present. Regular rhythm and rate, sinus rhythm on telemetry. Palpable peripheral pulses bilaterally. No edema present. No calf pain or tenderness noted. - Gastrointestinal Gastrointestinal Comment(s): Abdomen soft, nontender, nondistended. Active bowel sounds present 4 quadrants. Tolerating diet. - Genitourinary Genitourinary Comment(s): Continues to void - Integumentary Integumentary Comment(s): Skin is warm and dry with evidence of good perfusion - Neurologic Neurologic: Present: CNII-XII intact - Musculoskeletal Musculoskeletal: Present: gait normal, strength equal bilaterally - Psychiatric Psychiatric: Present: A&O x's 3, appropriate affect - Allied health notes Allied health notes reviewed: nursing - Labs CBC & Chem 7: 05/27/20 06:08 05/27/20 06:08 Labs: Abnormal Lab Results - Last 24 Hours (Table) 05/27/20 05/27/20 Range/Units 06:08 06:08 WBC 18.7 H (3.8-10.6) k/uL Neutrophils # 16.5 H (1.3-7.7) k/uL Lymphocytes # 0.8 L (1.0-4.8) k/uL Monocytes # 1.1 H (0-1.0) k/uL BUN/Creatinine Ratio 22.86 H (12.00-20.00) Ratio Glucose 115 H (70-110) mg/dL Calcium 8.6 L (8.7-10.3) mg/dL Microbiology - Last 24 Hours (Table) 05/25/20 15:30 Gram Stain - Preliminary Pleural Fluid Body Fluid Culture - Preliminary 05/23/20 16:44 Blood Culture - Preliminary Blood No Growth after 72 hours 05/25/20 15:30 Acid Fast Bacilli Smear - Final Pleural Fluid Acid Fast Bacilli Culture - Preliminary 05/24/20 11:38 Gram Stain - Final Sputum Sputum Culture - Final - Imaging and Cardiology Chest x-ray: report reviewed, image reviewed Assessment and Plan Assessment: 1. Left lower lobe pneumonia with secondary sepsis. Consolidation left lower lobe with moderate sized loculated left sided pleural effusion, status post placement of left chest pigtail catheter. 2. Acute leukocytosis, secondary to above 3. Fever 4. Acute hypoxemia, currently on 2 L nasal cannula oxygen 5. History of hyperlipidemia 6. Obstructive sleep apnea with home CPAP use 7. History of traumatic brain injury 8. History of depression Plan: 1. Continue pigtail to wall suction, alteplase instilled again today. 2. Will monitor daily x-rays. 3. Wean O2 as tolerated, encouraged insulin spirometry 10 times every hour while awake 4. Antibiotics per infectious disease 5. Increase activity, ambulate as tolerated 6. We'll continue to monitor x-rays, output from pigtail, and patient's response to therapy. Patient may still need surgical decortication dependent on his progress 7. Medical management of other comorbidities per rectum or care service 8. More recommendations to follow Time with Patient: Greater than 30
[2020-05-27] MEDS: metroNIDAZOLE 500 MG TAB PO SCH ×2 (17:01→22:57)
[2020-05-28] MEDS: MORPHINE SULFATE 2 MG/ML SYRINGE IVP PRN ×3 (02:42→10:43)
[2020-05-28 06:41] LABS: Glucose,Whole Blood 107 mg/dL (75-99)
[2020-05-28 06:54] LABS: Basophils # (A) 0.1 k/uL (0-0.2); Basophils % (A) 1 %; Eosinophils # (A) 0.3 k/uL (0-0.7); Eosinophils % (A) 2 %; HCT 43.4 % (39.0-53.0); HGB 14.3 gm/dL (13.0-17.5); Lymphocytes % (A) 7 %; MCH 30.5 pg (25.0-35.0); MCV 92.6 fL (80.0-100.0); Mean Platelet Volume 7.6; Monocytes # (A) 1.2 k/uL (0-1.0); Monocytes % (A) 8 %; Neutrophils # (A) 12.5 k/uL (1.3-7.7); Neutrophils % (A) 82 %; Platelet Count 354 k/uL (150-450); RBC 4.68 m/uL (4.30-5.90); RDW 11.9 % (11.5-15.5); WBC 15.3 k/uL (3.8-10.6)
[2020-05-28] MEDS: metroNIDAZOLE 500 MG TAB PO SCH ×3 (07:02→23:17)
[2020-05-28] MEDS: PANTOPRAZOLE 40 MG TABLET PO SCH (07:02)
[2020-05-28] MEDS: HEPARIN SODIUM,PORCINE 5,000 UNIT/ML 1 ML VIAL SQ SCH ×2 (08:24→20:31)
[2020-05-28] MEDS: AZITHROMYCIN 500 MG TAB PO SCH (08:24)
[2020-05-28] MEDS: CITALOPRAM HYDROBROMIDE 20 MG TAB PO SCH (08:24)
--- NOTE | 2020-05-28 08:38 | XR ---
EXAMINATION TYPE: XR chest 2V DATE OF EXAM: 05/28/2020 COMPARISON: Chest x-ray from yesterday and older studies. HISTORY: Left-sided empyema. TECHNIQUE: Frontal and lateral views of the chest are obtained. FINDINGS: There is persistent posterior left basilar pigtail pleural drainage catheter. Persistent l eft mid to basilar opacity. Right lung remains clear. The cardiac silhouette size remains within nor mal limits. The osseous structures are intact. IMPRESSION: Overall stable findings from one day earlier, posterior pleural drainage catheter. Persi stent left mid to lower lung acute infiltrate and/or atelectasis with likely small residual left-side d pleural fluid collection. No new infiltrate observed.
--- NOTE | 2020-05-28 09:42 | P.PN ---
Subjective Progress Note Date: 05/28/20 Principal diagnosis: Community-acquired pneumonia Patient is doing fairly well today. Repeat chest x-ray is stable compared to yesterday. Patient reports he is still having chest discomfort mostly in the left chest when he's breathing in particular with deep breath. He denies any cough. Objective - Vital Signs Vital signs: Vital Signs Temp 99.0 F 05/28/20 02:16 Pulse 85 05/28/20 02:16 Resp 18 05/28/20 03:13 BP 113/77 05/28/20 02:16 Pulse Ox 96 05/28/20 02:19 Intake & Output 05/27/20 05/28/20 05/28/20 18:59 06:59 18:59 Intake Total 180 Output Total 170 150 Balance 10 -150 Intake: Oral 180 Output: Chest Tube Drainage 170 150 Pleural Catheter Left 170 150 Other: Voiding Method Toilet # Voids 1 3 - Exam General: The patient is awake and alert, in no distress Eye: there is normal conjunctiva bilaterally. Neck: The neck is supple, there is no JVD. Cardiovascular: Normal S1-S2, no S3-S4, no murmurs. Respiratory: Lungs are slightly diminished with no wheezing or crackles. Chest tube in place Gastrointestinal: Abdomen is soft, nontender Musculoskeletal: There is no pedal edema. Neurological:. Speech is normal. Skin: Skin is warm and dry - Labs CBC & Chem 7: 05/28/20 06:00 05/27/20 06:08 Labs: Abnormal Lab Results - Last 24 Hours (Table) 05/27/20 05/28/20 05/28/20 Range/Units 06:08 06:00 06:38 WBC 15.3 H (3.8-10.6) k/uL Neutrophils # 12.5 H (1.3-7.7) k/uL Monocytes # 1.2 H (0-1.0) k/uL BUN/Creatinine Ratio 22.86 H (12.00-20.00) Ratio Glucose 115 H (70-110) mg/dL POC Glucose (mg/dL) 107 H (75-99) mg/dL Calcium 8.6 L (8.7-10.3) mg/dL Microbiology - Last 24 Hours (Table) 05/23/20 16:44 Blood Culture - Preliminary Blood No Growth after 96 hours 05/25/20 15:30 Gram Stain - Preliminary Pleural Fluid Body Fluid Culture - Preliminary Assessment and Plan Assessment: This is a 39-year-old male with past medical history noted below who presented to the emergency room with left-sided chest pain and shortness of breath. Patient was evaluated in the ER and currently admitted to the hospital for further management of his medical problems noted below. 1. Community-acquired pneumonia: Started on IV ceftriaxone and azithromycin since admission. Sputum culture with normal juanita. Covid 19 test negative. I added Flagyl 500 mg 3 times a day on 05/26 given left empyema 2. Left parapneumonic effusion/empyema: CT of the chest on 05/25 showed interval development of a large pleural effusion status post left chest tube/pigtail insertion on 05/25 with approximately 140 ml of cloudy serous fluid drained. Status post TPA on 05/26 with approximately 2 L drainage per note. Fluid cultures negative to date. Repeat chest x-ray showed interval improvement in the left-sided effusion. Pulmonary and thoracic surgery following closely, appreciate recommendations. 3. Sepsis without septic shock, improved with IV fluid hydration and antibiotic. Lactic acid normal. Blood culture negative 4. Underlying depression and obstructive sleep apnea: Continue home medications and CPAP at night 5. DVT prophylaxis with subcu heparin Today, I reviewed his medication list and lab work results. Continue current regimen. I would do a trial of ibuprofen 600 mg every 8 hours to see if may help with his pleurisy. Appreciate sr technical sales consultant's recommendations. Repeat chest x-ray in the morning.
--- NOTE | 2020-05-28 09:53 | P.PN ---
Subjective Progress Note Date: 05/28/20 Principal diagnosis: Left lower lobe pneumonia with secondary sepsis, consolidation left lower lobe with moderate sized loculated left sided pleural effusion, acute leukocytosis, fever, acute hypoxemia. Past medical history significant for hyperlipidemia, obstructive sleep apnea with home CPAP use, traumatic brain injury, and depression. POD #3 insertion of left-sided pigtail catheter, placed by interventional radiology. The patient was seen in follow-up today at his bedside on the fourth floor medical surgical unit. He is sitting up in bed, is awake, alert and oriented 3 and is in no acute apparent distress. Currently he denies any complaints of shortness of breath although complains of some pain to his left chest with inspiration. Oxygen saturation are 94% on 2 L nasal cannula and he is achieving 1000 mL on his incentive spirometry. Left chest pigtail catheter remains in place to low continuous wall suction -20 cm H2O. No air leak is present. Draining thin serosanguineous drainage with 1 L of drainage in the last 24 hours. The patient did receive an alteplase pleural instillation yesterday 10 mg/with 100 mL of normal saline. A repeat chest x-ray was completed this morning which shows a persistent left mid to lower lung acute infiltrate and/or atelectasis with a small residual left sided pleural fluid collection. Objective - Vital Signs Vital signs: Vital Signs Temp 99.0 F 05/28/20 02:16 Pulse 85 05/28/20 02:16 Resp 18 05/28/20 03:13 BP 113/77 05/28/20 02:16 Pulse Ox 96 05/28/20 02:19 Intake & Output 05/27/20 05/28/20 05/28/20 18:59 06:59 18:59 Intake Total 180 Output Total 170 150 Balance 10 -150 Intake: Oral 180 Output: Chest Tube Drainage 170 150 Pleural Catheter Left 170 150 Other: Voiding Method Toilet # Voids 1 3 - Constitutional General appearance: Present: cooperative, no acute distress, obese - EENT Eyes: Present: PERRLA, normal appearance. Absent: scleral icterus ENT: Present: hearing grossly normal - Neck Details: Neck is supple, no JVD, no lymphadenopathy. - Respiratory Details: Lung sounds are essentially clear to his bilateral upper lobes, diminished to his bilateral bases left greater than right. Respirations are symmetrical and nonlabored. Oxygen saturation are 94% on 2 L nasal cannula. Achieving 1000 mL on his incentive spirometry. Left pleural pigtail catheter remains in place to low continuous wall suction -20 cm H2O. No airleak used present. Draining thin serosanguineous drainage with 1 L of drainage in the last 24 hours. - Cardiovascular Details: Regular rhythm and rate. S1 and S2 present, negative for S3, gallop or murmur. No edema present. - Gastrointestinal Gastrointestinal Comment(s): Abdomen soft, nontender and nondistended. Active bowel sounds present in all 4 abdominal quadrants. No guarding or rigidity. No organomegaly appreciated. Tolerating oral intake. - Genitourinary Genitourinary Comment(s): Continues to void. - Integumentary Integumentary Comment(s): Skin is warm and dry. No clubbing or cyanosis is present. Dressing is clean, dry and in place to his left chest pigtail catheter. - Neurologic Neurologic: Present: CNII-XII intact - Musculoskeletal Musculoskeletal: Present: gait normal, strength equal bilaterally - Psychiatric Psychiatric: Present: A&O x's 3, appropriate affect, intact judgment & insight - Allied health notes Allied health notes reviewed: nursing - Labs CBC & Chem 7: 05/28/20 06:00 05/27/20 06:08 Labs: Abnormal Lab Results - Last 24 Hours (Table) 05/27/20 05/28/20 05/28/20 Range/Units 06:08 06:00 06:38 WBC 15.3 H (3.8-10.6) k/uL Neutrophils # 12.5 H (1.3-7.7) k/uL Monocytes # 1.2 H (0-1.0) k/uL BUN/Creatinine Ratio 22.86 H (12.00-20.00) Ratio Glucose 115 H (70-110) mg/dL POC Glucose (mg/dL) 107 H (75-99) mg/dL Calcium 8.6 L (8.7-10.3) mg/dL Microbiology - Last 24 Hours (Table) 05/23/20 16:44 Blood Culture - Preliminary Blood No Growth after 96 hours 05/25/20 15:30 Gram Stain - Preliminary Pleural Fluid Body Fluid Culture - Preliminary - Imaging and Cardiology Chest x-ray: report reviewed, image reviewed Assessment and Plan Assessment: 1. Left lower lobe pneumonia with secondary sepsis. Consolidation left lower lobe with moderate sized loculated left sided pleural effusion, Status post placement of left chest pigtail catheter. 2. Acute leukocytosis, secondary to above 3. Fever 4. Acute hypoxemia, currently on 2 L nasal cannula oxygen 5. History of hyperlipidemia 6. Obstructive sleep apnea with home CPAP use 7. History of traumatic brain injury 8. History of depression Plan: 1. Continue pigtail to wall suction, alteplase instilled again today which will be his third dose. 2. Continue to monitor daily chest x-rays. 3. Wean O2 as tolerated, encouraged use of his incentive spirometry 10 times every hour while awake. 4. Antibiotics management per infectious disease. 5. Increase activity, ambulate as tolerated. 6. We will continue to monitor output from pigtail catheter, and patient's response to therapy. Patient may still need surgical decortication dependent on his progress. 7. Medical management of other comorbidities per primary care service. 8. More recommendations to follow based on patient's clinical course. Time with Patient: Greater than 30
[2020-05-28] MEDS ORDERED: ALTEPLASE 10 MG in SODIUM CHLORIDE 0.9% 100 ML IRRIGATION ONE (10:00)
[2020-05-28 10:11] LABS: African American GFR (CKD) 135.9 (60.0-200.0); Anion Gap 9.7 mmol/L (4.00-12.00); Calcium 8.5 mg/dL (8.7-10.3); Carbon Dioxide 27.3 mmol/L (21.6-31.8); Non-African American GFR(CKD) 117.2 (60.0-200.0); Potassium 4.7 mmol/L (3.5-5.5)
[2020-05-28] MEDS: IBUPROFEN 600 MG TAB PO SCH ×3 (10:34→20:31)
[2020-05-28 11:30] VITALS: BMI 31.7
--- NOTE | 2020-05-28 12:19 | P.PN ---
Subjective Progress Note Date: 05/28/20 Principal diagnosis: Left lower lobe pneumonia with secondary sepsis,, located parapneumonic left- sided pleural effusion The patient is seen today 05/27/2020 in follow-up on the regular medical floor. He is awake and alert in no acute distress. He is status post pigtail catheter insertion. Fluid is exudative in nature. Total protein 4.2. LDH 2760. He did receive alteplase infusion yesterday and had 1.9 L output. Continues to drain today. Plan is for repeat alteplase infusion. He denies any worsening shortness of breath, cough or congestion. Fluid fluid cultures are pending. White count 18.7. Hemoglobin 13.0. Sodium 130. Potassium 4.6. Creatinine 0.7. He remains on ceftriaxone, azithromycin and metronidazole. The patient is seen today 06/07/2020 in follow-up on the regular medical floor. He is resting comfortably in bed. Awake and alert in no acute distress. Maintaining O2 saturations in the mid 90s on 2 L/m per nasal cannula. Pigtail catheter remains in place to the left chest. He received a third dose of alteplase today. Chest x-ray continues to show left pleural effusion. Cultures are pending. White count 15.3. Hemoglobin 14.3. Sodium 135. Potassium 4.7. Creatinine 0.7. He is continued on ceftriaxone and azithromycin. Continued on Flagyl. Heparin for DVT prophylaxis. Objective - Vital Signs Vital signs: Vital Signs Temp 99.0 F 05/28/20 02:16 Pulse 65 05/28/20 07:00 Resp 18 05/28/20 07:00 BP 105/70 05/28/20 07:00 Pulse Ox 94 L 05/28/20 07:00 Intake & Output 05/27/20 05/28/20 05/28/20 18:59 06:59 18:59 Intake Total 180 Output Total 847 779 0809 Balance 10 -150 -1250 Weight 97.522 kg Intake: Oral 180 Output: Chest Tube Drainage 585 380 6368 Pleural Catheter Left 406 090 8675 Other: Voiding Method Toilet Toilet # Voids 1 3 - Exam GENERAL EXAM: Alert, active, very pleasant 39-year-old gentleman, on room air, comfortable in no apparent distress. HEAD: Normocephalic. EYES: Normal reaction of pupils, equal size. NOSE: Clear with pink turbinates. THROAT: No erythema or exudates. NECK: No masses, no JVD. CHEST: No chest wall deformity. Left-sided pigtail catheter remains in place to wall suction LUNGS: Equal air entry with scattered rhonchi throughout the left lung. CVS: S1 and S2 normal with no audible murmur, regular rhythm. ABDOMEN: No hepatosplenomegaly, normal bowel sounds, no guarding or rigidity. SPINE: No scoliosis or deformity SKIN: No rashes CENTRAL NERVOUS SYSTEM: No focal deficits, tone is normal in all 4 extremities. EXTREMITIES: There is no peripheral edema. No clubbing, no cyanosis. Peripheral pulses are intact. - Labs CBC & Chem 7: 05/28/20 06:00 05/28/20 06:00 Labs: Abnormal Lab Results - Last 24 Hours (Table) 05/28/20 05/28/20 05/28/20 Range/Units 06:00 06:00 06:38 WBC 15.3 H (3.8-10.6) k/uL Neutrophils # 12.5 H (1.3-7.7) k/uL Monocytes # 1.2 H (0-1.0) k/uL POC Glucose (mg/dL) 107 H (75-99) mg/dL Calcium 8.5 L (8.7-10.3) mg/dL Microbiology - Last 24 Hours (Table) 05/25/20 15:30 Gram Stain - Preliminary Pleural Fluid Body Fluid Culture - Preliminary 05/23/20 16:44 Blood Culture - Preliminary Blood No Growth after 96 hours Assessment and Plan Assessment: 1 left lower lobe pneumonia with secondary sepsis. The patient has extensive consolidation of the left lower lobe in addition to that there is a moderate- sized loculated left-sided pleural effusion that has developed on follow-up CAT scan of the chest, with persistent fevers, leukocytosis, status post left chest pigtail chest tube insertion, with drainage of approximately 140 mL of cloudy serous fluid which was exudative in nature. Has received alteplase 3 thus far. Follow-up computed tomography scan in a.m. 2 acute leukocytosis, white cell count is 18 3 acute fever 4 acute hypoxemia currently on 2 L of oxygen by nasal cannula 5 severe sleep apnea with an AHI of 91, currently receiving treatment, the patient is utilizing an APAP on outpatient basis with a minimum pressure of 5 and a maximum pressure of 20 6 history of traumatic brain injury 7 history of depression 8 acid reflux Plan: The patient was seen and evaluated by Dr. Bruce Chest x-ray and labs reviewed Pigtail catheter remains in place Alteplase infusion again today Continue antibiotics Increase activity as tolerated Continue the use of the incentive spirometer Computed tomography scan of the chest without contrast in a.m. We will continue to follow I, the cosigning physician, performed a history & physical examination of the patient. Lungs sounds scattered rhonchi in the left lung base. Maintaining good O2 saturations in the 90s on room air. I discussed the assessment and plan of care with my nurse practitioner, Amina Hsieh. I attest to the above note as dictated by her.
[2020-05-29] MEDS: CITALOPRAM HYDROBROMIDE 20 MG TAB PO SCH (07:41)
[2020-05-29] MEDS: HEPARIN SODIUM,PORCINE 5,000 UNIT/ML 1 ML VIAL SQ SCH ×2 (07:41→20:16)
[2020-05-29] MEDS: metroNIDAZOLE 500 MG TAB PO SCH ×3 (07:42→23:05)
[2020-05-29] MEDS: AZITHROMYCIN 500 MG TAB PO SCH (07:42)
[2020-05-29] MEDS: IBUPROFEN 600 MG TAB PO SCH (07:42)
[2020-05-29] MEDS: PANTOPRAZOLE 40 MG TABLET PO SCH (07:42)
--- NOTE | 2020-05-29 07:45 | XR ---
EXAMINATION TYPE: XR chest 1V portable DATE OF EXAM: 05/29/2020 COMPARISON: 05/28/2020 HISTORY: Empyema TECHNIQUE: Single frontal view of the chest is obtained. FINDINGS: Left-sided drainage catheter seen with improved aeration at the left lung base. Persistent elevation left hemidiaphragm. Residual consolidation and small effusion. Right lung is clear. Heart size stable. No sizable pneumothorax. IMPRESSION: 1. Interval reduction in amount of consolidation and pleural effusion on the left. Drainage catheter stable in appearance.
--- NOTE | 2020-05-29 08:28 | CT ---
EXAMINATION TYPE: CT chest wo con DATE OF EXAM: 05/29/2020 COMPARISON: 05/25/2020 HISTORY: Lt pleural loculated effusion CT DLP: 517.3 mGycm. Automated Exposure Control for Dose Reduction was Utilized. TECHNIQUE: CT scan of the thorax is performed without IV contrast. FINDINGS: LUNGS: There is left lower lobe consolidation. There is a residual small hydropneumothorax on the lef t. Findings are markedly improved compared to the prior exam. Fluid does appear to extend medially al marguerite the mediastinum anteriorly. Right lung remains clear. Very minimal subsegmental consolidation at the right lung base.. Drainage catheter noted in position. MEDIASTINUM: Lack of IV contrast is noted to limit evaluation for mediastinal and especially hilar ad enopathy. There are no definitive greater than 1 cm hilar or mediastinal lymph nodes. A small pericar dial effusion is noted. On this was also seen on the prior exam. OTHER: No additional significant ab normality is seen. IMPRESSION: 1. Interval marked improvement in the left-sided pleural fluid collection suspected to be empyema. Th ere is a small residual hydropneumothorax. There is fluid along the medial margin /pleural space of t he left upper lobe anteriorly. 2. There is a small pericardial effusion.
[2020-05-29 08:42] LABS: HCT 42.4 % (39.0-53.0); MCH 30.1 pg (25.0-35.0); MCHC 32.9 g/dL (31.0-37.0); MCV 91.5 fL (80.0-100.0); Mean Platelet Volume 8.2; Platelet Count 378 k/uL (150-450); RBC 4.63 m/uL (4.30-5.90); RDW 11.9 % (11.5-15.5); WBC 14.5 k/uL (3.8-10.6)
[2020-05-29] MEDS ORDERED: ALTEPLASE 10 MG in SODIUM CHLORIDE 0.9% 100 ML IRRIGATION ONE (09:00)
--- NOTE | 2020-05-29 09:13 | P.PN ---
Subjective Progress Note Date: 05/29/20 Principal diagnosis: Left lower lobe pneumonia with secondary sepsis, consolidation left lower lobe with moderate sized loculated left sided pleural effusion, acute leukocytosis, fever, acute hypoxemia. Past medical history significant for hyperlipidemia, obstructive sleep apnea with home CPAP use, traumatic brain injury, and depression. POD #4 insertion of left-sided pigtail catheter, placed by interventional radiology. The patient was seen in follow-up today 05/29/2020 at his bedside on the fourth floor medical surgical unit. He is sitting up in bed, is awake, alert and oriented 3 and is in no acute apparent distress. Currently he denies any complaints of shortness or pain at this time. The patient reports she feels much improved today and has more energy. His T-max temperature in the last 24 hours was 99.0F. Oxygen saturation are 96% on room air and he is achieving 1500 mL on his incentive spirometry. Pleural fluid cytology from 05/26/2020 showed degenerated acute inflammatory cells consistent with empyema. Left chest pigtail catheter remains in place to low continuous wall suction -20 cm H2O. No air leak is present. Draining thin serosanguineous cloudy drainage with 1.2 L output in the last 24 hours. He has received 3 doses of alteplase 10 mg/100 mL of normal saline over the last 3 days. A chest x-ray was completed this morning which showed an interval reduction in the amount of consolidation and pleural effusion on the left. A CAT scan of his chest was also completed this morning which showed an interval marked improvement in the left-sided pleural fluid collection, a small residual hydropneumothorax, fluid along the medial marilyn in/pleural space of the left upper lobe anteriorly and a small pericardial effusion. Objective - Vital Signs Vital signs: Vital Signs Temp 97.6 F 05/29/20 00:45 Pulse 72 05/29/20 00:45 Resp 18 05/29/20 07:41 BP 110/72 05/29/20 00:45 Pulse Ox 96 05/29/20 00:45 Intake & Output 05/28/20 05/29/20 05/29/20 18:59 06:59 18:59 Intake Total 400 Output Total 1250 540 Balance -1250 -540 400 Weight 97.522 kg Intake: Oral 400 Output: Chest Tube Drainage 1250 540 Pleural Catheter Left 1250 540 Other: Voiding Method Toilet Toilet # Voids 1 2 - Constitutional General appearance: Present: cooperative, no acute distress, severe distress - EENT Eyes: Present: PERRLA, dentition normal, normal appearance. Absent: scleral icterus - Neck Details: Neck is supple, no JVD, no lymphadenopathy. - Respiratory Details: Lung sounds are essentially clear to his bilateral upper lobes, diminished to his bilateral bases left greater than right. Respirations are spent: Nonlabored. Oxygen saturation is 96% on room air and he is achieving 1500 mL on his incentive spirometry. Left chest pigtail catheter remains in place to low continuous wall suction -20 cm H2O. No air leak is present. Draining thin serosanguineous cloudy drainage with 1.2 L output in the last 24 hours. - Cardiovascular Details: Regular rhythm and rate. S1 and S2 present, negative for S3, gallop or murmur. No edema present. - Gastrointestinal Gastrointestinal Comment(s): Abdomen is soft, nontender and nondistended. Active bowel sounds present in all 4 abdominal quadrants. No guarding or rigidity. No organomegaly appreciated. Tolerating oral intake. - Genitourinary Genitourinary Comment(s): Continues to void. - Integumentary Integumentary Comment(s): Skin is warm and dry. No clubbing or cyanosis is present. Dressing is clean, dry and intact to his left chest pigtail site. - Neurologic Neurologic: Present: CNII-XII intact - Musculoskeletal Musculoskeletal: Present: gait normal, strength equal bilaterally - Psychiatric Psychiatric: Present: A&O x's 3, appropriate affect, intact judgment & insight - Allied health notes Allied health notes reviewed: nursing - Labs CBC & Chem 7: 05/29/20 06:25 05/28/20 06:00 Labs: Abnormal Lab Results - Last 24 Hours (Table) 05/28/20 05/29/20 Range/Units 06:00 06:25 WBC 14.5 H (3.8-10.6) k/uL Calcium 8.5 L (8.7-10.3) mg/dL Microbiology - Last 24 Hours (Table) 05/23/20 16:44 Blood Culture - Preliminary Blood No Growth after 120 hours 05/25/20 15:30 Gram Stain - Preliminary Pleural Fluid Body Fluid Culture - Preliminary - Imaging and Cardiology Chest x-ray: report reviewed, image reviewed Assessment and Plan Assessment: 1. Left lower lobe pneumonia with secondary sepsis. Consolidation left lower lobe with moderate sized loculated left sided pleural effusion, Status post placement of left chest pigtail catheter. 2. Acute leukocytosis, secondary to above 3. Fever 4. Acute hypoxemia, currently on 2 L nasal cannula oxygen 5. History of hyperlipidemia 6. Obstructive sleep apnea with home CPAP use 7. History of traumatic brain injury 8. History of depression Plan: 1. Continue pigtail to wall suction, alteplase instilled again today which will be his fourth dose. 2. Continue to monitor daily chest x-rays. 3. Wean O2 as tolerated, encouraged use of his incentive spirometry 10 times every hour while awake. 4. Antibiotics management per infectious disease. Pleural fluid cytology consistent for empyema. 5. Increase activity, ambulate as tolerated. 6. We will continue to monitor output from pigtail catheter, and patient's response to therapy. 7. Medical management of other comorbidities per primary care service. 8. More recommendations to follow based on patient's clinical course. Time with Patient: Greater than 30
[2020-05-29 09:21] LABS: Band Neutrophils % 1 %; Eosinophils # (M) 0.29 k/uL (0-0.7); Lymphocytes # (M) 1.45 k/uL (1.0-4.8); Metamyelocytes # (M) 0.29 k/uL (0); Metamyelocytes % 2 %; Monocytes # (M) 1.45 k/uL (0-1.0); Myelocytes # (M) 0.87 k/uL (0); Myelocytes % 6 %; Neutrophils % (M) 71 %; Nucleated Red Blood Cells 0 /100 WBC (0-0); Total Cells Counted 200
[2020-05-29 09:29] LABS: African American GFR (CKD) 144.7 (60.0-200.0); Anion Gap 7.2 mmol/L (4.00-12.00); BUN/Creat Ratio 28.33 Ratio (12.00-20.00); Calcium 8.1 mg/dL (8.7-10.3); Carbon Dioxide 28.8 mmol/L (21.6-31.8); Non-African American GFR(CKD) 124.9 (60.0-200.0); Potassium 4.4 mmol/L (3.5-5.5)
--- NOTE | 2020-05-29 09:40 | P.PN ---
Subjective Progress Note Date: 05/29/20 Principal diagnosis: Community-acquired pneumonia Patient is doing fairly well today. He told me he is feeling a lot better compared to past couple of days. Pain has resolved. No shortness of breath. Objective - Vital Signs Vital signs: Vital Signs Temp 97.6 F 05/29/20 00:45 Pulse 72 05/29/20 00:45 Resp 18 05/29/20 07:41 BP 110/72 05/29/20 00:45 Pulse Ox 96 05/29/20 00:45 Intake & Output 05/28/20 05/29/20 05/29/20 18:59 06:59 18:59 Intake Total 400 Output Total 1250 540 Balance -1250 -540 400 Weight 97.522 kg Intake: Oral 400 Output: Chest Tube Drainage 1250 540 Pleural Catheter Left 1250 540 Other: Voiding Method Toilet Toilet # Voids 1 2 - Exam General: The patient is awake and alert, in no distress Eye: there is normal conjunctiva bilaterally. Neck: The neck is supple, there is no JVD. Cardiovascular: Normal S1-S2, no S3-S4, no murmurs. Respiratory: Lungs are slightly diminished with no wheezing or crackles. Chest tube in place Gastrointestinal: Abdomen is soft, nontender Musculoskeletal: There is no pedal edema. Neurological:. Speech is normal. Skin: Skin is warm and dry - Labs CBC & Chem 7: 05/29/20 06:25 05/29/20 06:25 Labs: Abnormal Lab Results - Last 24 Hours (Table) 05/28/20 05/29/20 05/29/20 Range/Units 06:00 06:25 06:25 WBC 14.5 H (3.8-10.6) k/uL Neutrophils # (Manual) 10.40 H (1.3-7.7) k/uL Monocytes # (Manual) 1.45 H (0-1.0) k/uL Metamyelocytes # (Man) 0.29 H (0) k/uL Myelocytes # (Manual) 0.87 H (0) k/uL BUN/Creatinine Ratio 28.33 H (12.00-20.00) Ratio Calcium 8.5 L 8.1 L (8.7-10.3) mg/dL Microbiology - Last 24 Hours (Table) 05/23/20 16:44 Blood Culture - Preliminary Blood No Growth after 120 hours 05/25/20 15:30 Gram Stain - Preliminary Pleural Fluid Body Fluid Culture - Preliminary Assessment and Plan Assessment: This is a 39-year-old male with past medical history noted below who presented to the emergency room with left-sided chest pain and shortness of breath. Patient was evaluated in the ER and currently admitted to the hospital for further management of his medical problems noted below. 1. Community-acquired pneumonia: Started on IV ceftriaxone and azithromycin sin ce admission. Sputum culture with normal juanita. Covid 19 test negative. I added Flagyl 500 mg 3 times a day on 05/26 given left empyema 2. Left parapneumonic effusion/empyema: CT of the chest on 05/25 showed interval development of a large pleural effusion status post left chest tube/pigtail inse rtion on 05/25 with approximately 140 ml of cloudy serous fluid drained. Status post TPA on 05/26 with approximately 2 L drainage per note. Fluid cultures negative to date. Repeat chest x-ray showed interval improvement in the left- sided effusion. Pulmonary and thoracic surgery following closely, appreciate recommendations. 3. Sepsis without septic shock, improved with IV fluid hydration and a ntibiotic. Lactic acid normal. Blood culture negative 4. Underlying depression and obstructive sleep apnea: Continue home medications and CPAP at night 5. DVT prophylaxis with subcu heparin Today, I reviewed his medication list and lab work results. Continue current regimen. Appreciate banking consultant's recommendations.
--- NOTE | 2020-05-29 11:40 | P.PN ---
Subjective Progress Note Date: 05/29/20 Principal diagnosis: Left lower lobe pneumonia with secondary sepsis,, located parapneumonic left- sided pleural effusion The patient is seen today 05/27/2020 in follow-up on the regular medical floor. He is awake and alert in no acute distress. He is status post pigtail catheter insertion. Fluid is exudative in nature. Total protein 4.2. LDH 2760. He did receive alteplase infusion yesterday and had 1.9 L output. Continues to drain today. Plan is for repeat alteplase infusion. He denies any worsening shortness of breath, cough or congestion. Fluid fluid cultures are pending. White count 18.7. Hemoglobin 13.0. Sodium 130. Potassium 4.6. Creatinine 0.7. He remains on ceftriaxone, azithromycin and metronidazole. The patient is seen today 06/07/2020 in follow-up on the regular medical floor. He is resting comfortably in bed. Awake and alert in no acute distress. Maintaining O2 saturations in the mid 90s on 2 L/m per nasal cannula. Pigtail catheter remains in place to the left chest. He received a third dose of alteplase today. Chest x-ray continues to show left pleural effusion. Cultures are pending. White count 15.3. Hemoglobin 14.3. Sodium 135. Potassium 4.7. Creatinine 0.7. He is continued on ceftriaxone and azithromycin. Continued on Flagyl. Heparin for DVT prophylaxis. The patient is seen today 05/29/2020 in follow-up on the regular medical floor. He is currently resting comfortably in bed. Awake and alert in no acute di stress. He is maintaining O2 saturations in the 90s on room air. Left-sided pigtail catheter remains in place He received a fourth dose of alteplase today. Chest x-ray showing much improvement. CAT scan is showing marketed improvement in the left-sided pleural fluid collection suspected to be empyema. There is a residual hydropneumothorax. There is fluid long the medial margin/pleural space on the left upper lobe anteriorly. There are small pericardial effusion. Pleural fluid cultures are pending. White count 14.5. Hemoglobin 14.0. Neutrophils 10.4. Monocytes 1.45. Sodium 135. Potassium 4.4. Creatinine 0.6. He is continued on bronchodilators, ceftriaxone and Flagyl. Objective - Vital Signs Vital signs: Vital Signs Temp 98.0 F 05/29/20 07:00 Pulse 80 05/29/20 07:00 Resp 18 05/29/20 07:41 BP 110/72 05/29/20 07:00 Pulse Ox 93 L 05/29/20 07:00 Intake & Output 05/28/20 05/29/20 05/29/20 18:59 06:59 18:59 Intake Total 400 Output Total 1250 540 Balance -1250 -540 400 Weight 97.522 kg Intake: Oral 400 Output: Chest Tube Drainage 1250 540 Pleural Catheter Left 1250 540 Other: Voiding Method Toilet Toilet # Voids 1 2 - Exam GENERAL EXAM: Alert, active, very pleasant 39-year-old gentleman, on room air, comfortable in no apparent distress. HEAD: Normocephalic. EYES: Normal reaction of pupils, equal size. NOSE: Clear with pink turbinates. THROAT: No erythema or exudates. NECK: No masses, no JVD. CHEST: No chest wall deformity. Left-sided pigtail catheter remains in place to wall suction LUNGS: Equal air entry with scattered rhonchi throughout the left lung. CVS: S1 and S2 normal with no audible murmur, regular rhythm. ABDOMEN: No hepatosplenomegaly, normal bowel sounds, no guarding or rigidity. SPINE: No scoliosis or deformity SKIN: No rashes CENTRAL NERVOUS SYSTEM: No focal deficits, tone is normal in all 4 extremities. EXTREMITIES: There is no peripheral edema. No clubbing, no cyanosis. Peripheral pulses are intact. - Labs CBC & Chem 7: 05/29/20 06:25 05/29/20 06:25 Labs: Abnormal Lab Results - Last 24 Hours (Table) 05/29/20 05/29/20 Range/Units 06:25 06:25 WBC 14.5 H (3.8-10.6) k/uL Neutrophils # (Manual) 10.40 H (1.3-7.7) k/uL Monocytes # (Manual) 1.45 H (0-1.0) k/uL Metamyelocytes # (Man) 0.29 H (0) k/uL Myelocytes # (Manual) 0.87 H (0) k/uL BUN/Creatinine Ratio 28.33 H (12.00-20.00) Ratio Calcium 8.1 L (8.7-10.3) mg/dL Microbiology - Last 24 Hours (Table) 05/23/20 16:44 Blood Culture - Preliminary Blood No Growth after 120 hours 05/25/20 15:30 Gram Stain - Preliminary Pleural Fluid Body Fluid Culture - Preliminary Assessment and Plan Assessment: 1 left lower lobe pneumonia with secondary sepsis. The patient has extensive consolidation of the left lower lobe in addition to that there is a moderate- sized loculated left-sided pleural effusion that has developed on follow-up CAT scan of the chest, with persistent fevers, leukocytosis, status post left chest pigtail chest tube insertion, with drainage of approximately 140 mL of cloudy serous fluid which was exudative in nature. Has received alteplase 4 thus far. Computed tomography scan of the chest today revealed marked improvement in the left-sided pleural collection suspected to be empyema. There is a small residual hydropneumothorax. There is fluid along the medial margin/pleural space of the left upper lobe anteriorly. Small hair cardio effusion. 2 acute leukocytosis, white cell count improving currently at 14 3 acute fever 4 acute hypoxemia , recovered currently on room air 5 severe sleep apnea with an AHI of 91, currently receiving treatment, the patient is utilizing an APAP on outpatient basis with a minimum pressure of 5 and a maximum pressure of 20 6 history of traumatic brain injury 7 history of depression 8 acid reflux Plan: The patient was seen and evaluated by Dr. Bruce CAT scan and labs reviewed Pigtail catheter remains in place Alteplase infusion again today Continue antibiotics Increase activity as tolerated Continue the use of the incentive spirometer Repeat chest x-ray in a.m. Possible discontinuation of pigtail catheter tomorrow We will continue to follow I, the cosigning physician, performed a history & physical examination of the patient. Lungs sounds scattered rhonchi in the left lung base. Maintaining good O2 saturations in the 90s on room air. I discussed the assessment and plan of care with my nurse practitioner, Amina Hsieh. I attest to the above note as dictated by her.
[2020-05-29] MEDS: IBUPROFEN 600 MG TAB PO PRN (17:13)
[2020-05-29] MEDS: MORPHINE SULFATE 2 MG/ML SYRINGE IVP PRN (23:05)
[2020-05-30 06:16] LABS: HCT 39.9 % (39.0-53.0); MCH 29.6 pg (25.0-35.0); MCHC 32.5 g/dL (31.0-37.0); MCV 90.9 fL (80.0-100.0); Mean Platelet Volume 7.2; Platelet Count 400 k/uL (150-450); RBC 4.39 m/uL (4.30-5.90); RDW 11.8 % (11.5-15.5)
[2020-05-30 06:55] LABS: Band Neutrophils % 2 %; Lymphocytes # (M) 2.76 k/uL (1.0-4.8); Monocytes # (M) 1.08 k/uL (0-1.0); Myelocytes # (M) 0.12 k/uL (0); Myelocytes % 1 %; Neutrophils % (M) 60 %; Nucleated Red Blood Cells 0 /100 WBC (0-0); Total Cells Counted 200
[2020-05-30] MEDS: IBUPROFEN 600 MG TAB PO PRN ×2 (07:03→15:39)
--- NOTE | 2020-05-30 07:38 | XR ---
EXAMINATION TYPE: XR chest 2V DATE OF EXAM: 05/30/2020 COMPARISON: NONE HISTORY: Chest pain TECHNIQUE: Frontal and lateral views of the chest are obtained. FINDINGS: Redemonstrated is left lower lobe pleural-parenchymal opacity with small focal hydropneumothorax. Lef t basilar pleural catheter is unchanged in position. The remainder of the lungs are clear. No evidence for pneumothorax. No pleural effusion. The cardiac silhouette size is within normal limits. The osseous structures are grossly intact. IMPRESSION: 1. Redemonstrated is left lower lobe pleural-parenchymal opacity with small focal hydropneumothorax. Left basilar pleural catheter is unchanged in position.
[2020-05-30] MEDS: metroNIDAZOLE 500 MG TAB PO SCH ×3 (08:09→23:15)
[2020-05-30] MEDS: PANTOPRAZOLE 40 MG TABLET PO SCH (08:09)
[2020-05-30] MEDS: CITALOPRAM HYDROBROMIDE 20 MG TAB PO SCH (08:09)
[2020-05-30] MEDS: HEPARIN SODIUM,PORCINE 5,000 UNIT/ML 1 ML VIAL SQ SCH ×2 (08:10→20:57)
--- NOTE | 2020-05-30 09:24 | P.PN ---
Subjective Progress Note Date: 05/30/20 Principal diagnosis: Left lower lobe pneumonia with secondary sepsis, consolidation left lower lobe with moderate sized loculated left sided pleural effusion, acute leukocytosis, fever, acute hypoxemia. Past medical history significant for hyperlipidemia, obstructive sleep apnea with home CPAP use, traumatic brain injury, and depression. POD #5 insertion of left-sided pigtail catheter, placed by interventional radiology. The patient was seen in follow-up today 05/30/2020 at his bedside on the fourth floor medical surgical unit. He is sitting up in bed, is awake, alert and oriented 3 and is in no acute apparent distress. Currently he denies any complaints of shortness, although this morning he is complaining of some pain to his left lower chest with taking a deep breath. Left chest pigtail catheter remains in place to low continuous wall suction -20 cm H2O. No air leak is present. Draining thin serosanguineous drainage with 330 mL output in the last 24 hours. He did receive a fourth dose of alteplase 10 mg/100 mL normal saline yesterday. Oxygen saturation is 94% on room air and he is achieving 1250 mL on his incentive spirometry. Yesterday he was achieving 1500 mL on his incentive spirometry, although due to the pain with taking a deep breath he reports 1250 mL is what he can achieve today. He remains on Rocephin IV piggyback and Flagyl by mouth for antibiotic coverage. Lab results this morning show a WBC count of 12.0 which continues to trend down. He has been afebrile in the last 24 hours. Objective - Vital Signs Vital signs: Vital Signs Temp 98.1 F 05/30/20 06:54 Pulse 80 05/30/20 06:54 Resp 14 05/30/20 06:54 BP 110/70 05/30/20 06:54 Pulse Ox 94 L 05/30/20 06:54 Intake & Output 05/29/20 05/30/20 05/30/20 18:59 06:59 18:59 Intake Total 1480 Output Total 270 200 Balance 1210 -200 Intake: Oral 1480 Output: Chest Tube Drainage 270 200 Pleural Catheter Left 270 200 Other: Voiding Method Toilet # Voids 3 3 - Constitutional General appearance: Present: cooperative, no acute distress, obese - EENT Eyes: Present: PERRLA, dentition normal, normal appearance. Absent: scleral icterus ENT: Present: hearing grossly normal - Neck Details: Neck is supple, no JVD. No lymphadenopathy. - Respiratory Details: Lungs are essentially clear to his bilateral upper lobes, diminished to his bilateral bases left greater than right. Aspirations are symmetrical and nonlabored. Oxygen saturation 94% on room air. Achieving 1250 mL on his incentive spirometry. Left chest pigtail catheter remains in place to low continuous wall suction -20 cm H2O. No air leak is present. Draining thin serosanguineous drainage with 330 mL output last 24 hours. - Cardiovascular Details: Regular rhythm and rate. S1 and S2 present, negative for S3, gallop or murmur. No edema present. - Gastrointestinal Gastrointestinal Comment(s): Abdomen is soft, nontender and nondistended. Active bowel sounds present in all 4 abdominal quadrants. No guarding or rigidity. No organomegaly appreciated. Tolerating oral intake. - Genitourinary Genitourinary Comment(s): Continues to void. - Integumentary Integumentary Comment(s): Skin is warm and dry. No clubbing or cyanosis is present. Dressing is clean, dry and in place to his left chest pigtail catheter. - Neurologic Neurologic: Present: CNII-XII intact - Musculoskeletal Musculoskeletal: Present: gait normal, strength equal bilaterally - Psychiatric Psychiatric: Present: A&O x's 3, appropriate affect, intact judgment & insight - Allied health notes Allied health notes reviewed: nursing - Labs CBC & Chem 7: 05/30/20 05:25 05/29/20 06:25 Labs: Abnormal Lab Results - Last 24 Hours (Table) 05/29/20 05/29/20 05/30/20 Range/Units 06:25 06:25 05:25 WBC 12.0 H (3.8-10.6) k/uL Neutrophils # (Manual) 10.40 H (1.3-7.7) k/uL Monocytes # (Manual) 1.45 H 1.08 H (0-1.0) k/uL Metamyelocytes # (Man) 0.29 H (0) k/uL Myelocytes # (Manual) 0.87 H 0.12 H (0) k/uL BUN/Creatinine Ratio 28.33 H (12.00-20.00) Ratio Calcium 8.1 L (8.7-10.3) mg/dL Microbiology - Last 24 Hours (Table) 05/25/20 15:30 Gram Stain - Final Pleural Fluid Body Fluid Culture - Final 05/25/20 15:30 Anaerobic Culture - Preliminary Pleural Fluid Alpha Hemolytic Streptococcus 05/23/20 16:44 Blood Culture - Final Blood No Growth after 144 hours - Imaging and Cardiology Chest x-ray: report reviewed, image reviewed Assessment and Plan Assessment: 1. Left lower lobe pneumonia with secondary sepsis. Consolidation left lower lobe with moderate sized loculated left sided pleural effusion, Status post placement of left chest pigtail catheter. 2. Acute leukocytosis, secondary to above 3. Fever 4. Acute hypoxemia, currently on 2 L nasal cannula oxygen 5. History of hyperlipidemia 6. Obstructive sleep apnea with home CPAP use 7. History of traumatic brain injury 8. History of depression Plan: 1. We will remove his left chest pigtail catheter today. Recommendations are for interventional radiology to place a pigtail catheter to his residual pleural fluid pocket. Once the pigtail catheter is placed we will resume pleural alteplase treatments. 2. Continue to monitor daily chest x-rays. 3. Encouraged use of his incentive spirometry 10 times every hour while awake. 4. Antibiotics management per pulmonary medicine. Pleural fluid cytology consistent for empyema. 5. Increase activity, ambulate as tolerated. 6. Medical management of other comorbidities per primary care service. 7. More recommendations to follow based on patient's clinical course. Time with Patient: Greater than 30
--- NOTE | 2020-05-30 09:37 | P.PN ---
Subjective Progress Note Date: 05/30/20 Principal diagnosis: Community-acquired pneumonia Patient is doing fairly well today. He denies shortness of breath or pain. No acute events overnight reported by nursing staff. Objective - Vital Signs Vital signs: Vital Signs Temp 98.1 F 05/30/20 06:54 Pulse 80 05/30/20 06:54 Resp 14 05/30/20 06:54 BP 110/70 05/30/20 06:54 Pulse Ox 94 L 05/30/20 06:54 Intake & Output 05/29/20 05/30/20 05/30/20 18:59 06:59 18:59 Intake Total 1480 Output Total 270 200 Balance 1210 -200 Intake: Oral 1480 Output: Chest Tube Drainage 270 200 Pleural Catheter Left 270 200 Other: Voiding Method Toilet # Voids 3 3 - Exam General: The patient is awake and alert, in no distress Eye: there is normal conjunctiva bilaterally. Neck: The neck is supple, there is no JVD. Cardiovascular: Normal S1-S2, no S3-S4, no murmurs. Respiratory: Lungs clear to auscultation bilaterally Gastrointestinal: Abdomen is soft, nontender Musculoskeletal: There is no pedal edema. Neurological:. Speech is normal. Skin: Skin is warm and dry - Labs CBC & Chem 7: 05/30/20 05:25 05/29/20 06:25 Labs: Abnormal Lab Results - Last 24 Hours (Table) 05/30/20 Range/Units 05:25 WBC 12.0 H (3.8-10.6) k/uL Monocytes # (Manual) 1.08 H (0-1.0) k/uL Myelocytes # (Manual) 0.12 H (0) k/uL Microbiology - Last 24 Hours (Table) 05/25/20 15:30 Gram Stain - Final Pleural Fluid Body Fluid Culture - Final 05/25/20 15:30 Anaerobic Culture - Preliminary Pleural Fluid Alpha Hemolytic Streptococcus 05/23/20 16:44 Blood Culture - Final Blood No Growth after 144 hours Assessment and Plan Assessment: This is a 39-year-old male with past medical history noted below who presented to the emergency room with left-sided chest pain and shortness of breath. Patient was evaluated in the ER and currently admitted to the hospital for further management of his medical problems noted below. 1. Community-acquired pneumonia: Started on IV ceftriaxone and azithromycin since admission. Sputum culture with normal juanita. Covid 19 test negative. I added Flagyl 500 mg 3 times a day on 05/26 given left empyema. IV ceftriaxone day #8. Flagyl day #5 2. Left parapneumonic effusion/empyema: CT of the chest on 05/25 showed interval development of a large pleural effusion status post left chest tube/pigtail insertion on 05/25 with approximately 140 ml of cloudy serous fluid drained. Status post TPA on 05/26 with approximately 2 L drainage per note. Plan for chest tube removal today on 05/30. Anticipate IR to place another pigtail catheter tomorrow to drain the loculated pocket for CT surgery recommendations. Fluid cultures negative to date. Repeat chest x-ray showed interval improvement in the left-sided effusion. Pulmonary and thoracic surgery following closely, appreciate recommendations. 3. Sepsis without septic shock, improved with IV fluid hydration and antibiotic. Lactic acid normal. Blood culture negative 4. Underlying depression and obstructive sleep apnea: Continue home medications and CPAP at night 5. DVT prophylaxis with subcu heparin Today, I reviewed his medication list and lab work results. Continue current regimen. Appreciate polymer materials consultant's recommendations.
[2020-05-30 09:55] LABS: African American GFR (CKD) 144.7 (60.0-200.0); Anion Gap 7.9 mmol/L (4.00-12.00); BUN/Creat Ratio 26.67 Ratio (12.00-20.00); Calcium 8.3 mg/dL (8.7-10.3); Carbon Dioxide 29.1 mmol/L (21.6-31.8); Non-African American GFR(CKD) 124.9 (60.0-200.0)
--- NOTE | 2020-05-30 11:04 | P.PN ---
Subjective Progress Note Date: 05/30/20 Principal diagnosis: Left lower lobe pneumonia with secondary sepsis,, located parapneumonic left- sided pleural effusion The patient is seen today 05/27/2020 in follow-up on the regular medical floor. He is awake and alert in no acute distress. He is status post pigtail catheter insertion. Fluid is exudative in nature. Total protein 4.2. LDH 2760. He did receive alteplase infusion yesterday and had 1.9 L output. Continues to drain today. Plan is for repeat alteplase infusion. He denies any worsening shortness of breath, cough or congestion. Fluid fluid cultures are pending. White count 18.7. Hemoglobin 13.0. Sodium 130. Potassium 4.6. Creatinine 0.7. He remains on ceftriaxone, azithromycin and metronidazole. The patient is seen today 06/07/2020 in follow-up on the regular medical floor. He is resting comfortably in bed. Awake and alert in no acute distress. Maintaining O2 saturations in the mid 90s on 2 L/m per nasal cannula. Pigtail catheter remains in place to the left chest. He received a third dose of alteplase today. Chest x-ray continues to show left pleural effusion. Cultures are pending. White count 15.3. Hemoglobin 14.3. Sodium 135. Potassium 4.7. Creatinine 0.7. He is continued on ceftriaxone and azithromycin. Continued on Flagyl. Heparin for DVT prophylaxis. The patient is seen today 05/29/2020 in follow-up on the regular medical floor. He is currently resting comfortably in bed. Awake and alert in no acute di stress. He is maintaining O2 saturations in the 90s on room air. Left-sided pigtail catheter remains in place He received a fourth dose of alteplase today. Chest x-ray showing much improvement. CAT scan is showing marketed improvement in the left-sided pleural fluid collection suspected to be empyema. There is a residual hydropneumothorax. There is fluid long the medial margin/pleural space on the left upper lobe anteriorly. There are small pericardial effusion. Pleural fluid cultures are pending. White count 14.5. Hemoglobin 14.0. Neutrophils 10.4. Monocytes 1.45. Sodium 135. Potassium 4.4. Creatinine 0.6. He is continued on bronchodilators, ceftriaxone and Flagyl. The patient is seen today 05/30/2020 in follow-up on the regular medical floor. Awake and alert in no acute distress. No worsening shortness of breath, cough or congestion. Maintaining O2 saturations in the 90s on room air. He's been afebrile. Chest x-ray reveals left lower lobe pleural parenchymal opacity with small focal hydropneumothorax. Left basilar pleural catheter remains in place. He drained another 330 ML's out of the pigtail catheter following alteplase yesterday. Chest tube remains in place to low continuous wall suction -20 cm of water. No air leak present. Pleural fluid analysis consistent with empyema. He is continued on Rocephin, Flagyl. Continues to work well with the incentive spirometer. Objective - Vital Signs Vital signs: Vital Signs Temp 98.1 F 05/30/20 06:54 Pulse 80 05/30/20 06:54 Resp 14 05/30/20 06:54 BP 110/70 05/30/20 06:54 Pulse Ox 94 L 05/30/20 06:54 Intake & Output 05/29/20 05/30/20 05/30/20 18:59 06:59 18:59 Intake Total 1480 200 Output Total 270 200 Balance 1210 -200 200 Intake: Oral 1480 200 Output: Chest Tube Drainage 270 200 Pleural Catheter Left 270 200 Other: Voiding Method Toilet # Voids 3 3 - Exam GENERAL EXAM: Alert, active, very pleasant 39-year-old gentleman, on room air, comfortable in no apparent distress. HEAD: Normocephalic. EYES: Normal reaction of pupils, equal size. NOSE: Clear with pink turbinates. THROAT: No erythema or exudates. NECK: No masses, no JVD. CHEST: No chest wall deformity. Left-sided pigtail catheter remains in place to wall suction LUNGS: Equal air entry with scattered rhonchi throughout the left lung. CVS: S1 and S2 normal with no audible murmur, regular rhythm. ABDOMEN: No hepatosplenomegaly, normal bowel sounds, no guarding or rigidity. SPINE: No scoliosis or deformity SKIN: No rashes CENTRAL NERVOUS SYSTEM: No focal deficits, tone is normal in all 4 extremities. EXTREMITIES: There is no peripheral edema. No clubbing, no cyanosis. Peripheral pulses are intact. - Labs CBC & Chem 7: 05/30/20 05:25 05/30/20 05:25 Labs: Abnormal Lab Results - Last 24 Hours (Table) 05/30/20 05/30/20 Range/Units 05:25 05:25 WBC 12.0 H (3.8-10.6) k/uL Monocytes # (Manual) 1.08 H (0-1.0) k/uL Myelocytes # (Manual) 0.12 H (0) k/uL BUN/Creatinine Ratio 26.67 H (12.00-20.00) Ratio Calcium 8.3 L (8.7-10.3) mg/dL Microbiology - Last 24 Hours (Table) 05/25/20 15:30 Gram Stain - Final Pleural Fluid Body Fluid Culture - Final 05/25/20 15:30 Anaerobic Culture - Preliminary Pleural Fluid Alpha Hemolytic Streptococcus 05/23/20 16:44 Blood Culture - Final Blood No Growth after 144 hours Assessment and Plan Assessment: 1 left lower lobe pneumonia with secondary sepsis. The patient has extensive consolidation of the left lower lobe in addition to that there is a moderate- sized loculated left-sided pleural effusion that has developed on follow-up CAT scan of the chest, with persistent fevers, leukocytosis, status post left chest pigtail chest tube insertion, with drainage of approximately 140 mL of cloudy serous fluid which was exudative in nature. Has received alteplase 4 thus far. Computed tomography scan of the chest today revealed marked improvement in the left-sided pleural collection suspected to be empyema. There is a small residual hydropneumothorax. There is fluid along the medial margin/pleural space of the left upper lobe anteriorly. Small pericardial effusion. 2 acute leukocytosis, white cell count improving currently at 14 3 acute fever 4 acute hypoxemia , recovered currently on room air 5 severe sleep apnea with an AHI of 91, currently receiving treatment, the patient is utilizing an APAP on outpatient basis with a minimum pressure of 5 and a maximum pressure of 20 6 history of traumatic brain injury 7 history of depression 8 acid reflux Plan: The patient was seen and evaluated by Dr. Bruce Chest x-ray and labs reviewed Pigtail catheter to be removed today by CT service Plan is for another pigtail catheter placement in the remaining loculated pocket Continue antibiotics Increase activity as tolerated Continue the use of the incentive spirometer Repeat chest x-ray in a.m. We will continue to follow Laura, the cosigning physician, performed a history & physical examination of the patient. Lungs sounds scattered rhonchi in the left lung base. Maintaining good O2 saturations in the 90s on room air. I discussed the assessment and plan of care with my nurse practitioner, Amina Hsieh. I attest to the above note as dictated by her.
[2020-05-31] MEDS: HEPARIN SODIUM,PORCINE 5,000 UNIT/ML 1 ML VIAL SQ SCH ×2 (07:32→21:14)
[2020-05-31] MEDS: metroNIDAZOLE 500 MG TAB PO SCH ×2 (07:48→14:50)
[2020-05-31] MEDS: PANTOPRAZOLE 40 MG TABLET PO SCH (07:48)
[2020-05-31] MEDS: CITALOPRAM HYDROBROMIDE 20 MG TAB PO SCH (07:48)
[2020-05-31] MEDS: IBUPROFEN 600 MG TAB PO PRN (07:48)
--- NOTE | 2020-05-31 07:56 | XR ---
EXAMINATION TYPE: XR chest 2V DATE OF EXAM: 05/31/2020 COMPARISON: 05/30/2020 TECHNIQUE: PA and lateral views submitted. HISTORY: Left empyema FINDINGS: Chest tube is not seen on today's exam. There is a persistent left-sided consolidation and pleural ef fusion with the localized area of air-fluid level along the lateral margin of the chest which could r epresent loculated hydropneumothorax or loculated empyema. Right lung clear. Heart size normal. No pn eumothorax. Biapical pleural thickening. IMPRESSION: 1. Stable left lower lobe infiltrate and small effusion. Localized area of suspected hydropneumothora x or empyema along the lateral margin of the left upper lobe stable.
--- NOTE | 2020-05-31 08:23 | P.PN ---
Subjective Progress Note Date: 05/31/20 Principal diagnosis: Left lower lobe pneumonia with secondary sepsis, consolidation left lower lobe with moderate sized loculated left sided pleural effusion, acute leukocytosis, fever, acute hypoxemia. Past medical history significant for hyperlipidemia, obstructive sleep apnea with home CPAP use, traumatic brain injury, and depression. POD #6 insertion of left-sided pigtail catheter, placed by interventional radiology left chest pigtail catheter was removed without incident yesterday 05/30/2020. The patient was seen in follow-up today 05/31/2020 at his bedside on the fourth floor medical surgical unit. He is sitting up in bed, is awake, alert and oriented 3 and is in no acute apparent distress. He is tolerating his breakfast. Currently he denies any complaints of shortness or pain. Oxygen saturation is 95% on room air and he is achieving 1500 mL on his incentive spirometry. He remains on Rocephin IV piggyback and Flagyl by mouth for antibiotic coverage managed by primary care service. Pleural fluid cultures anaerobic results are showing alpha hemolytic streptococcus. He has been afebrile in the last 24 hours. The patient reports that he is feeling better on a daily basis. Objective - Vital Signs Vital signs: Vital Signs Temp 98.5 F 05/31/20 07:00 Pulse 76 05/31/20 07:00 Resp 16 05/31/20 07:00 BP 119/68 05/31/20 07:00 Pulse Ox 95 05/31/20 07:00 Intake & Output 05/30/20 05/31/20 05/31/20 18:59 06:59 18:59 Intake Total 1280 400 Balance 1280 400 Intake: Oral 1280 400 Other: # Voids 3 2 - Constitutional General appearance: Present: cooperative, no acute distress, obese - EENT Eyes: Present: PERRLA, normal appearance. Absent: scleral icterus ENT: Present: hearing grossly normal - Neck Details: Neck supple, no JVD, no lymphadenopathy. - Respiratory Details: Lung sounds are essentially clear to his bilateral upper lobes, diminished to his left lower lobe. Respirations are symmetrical and nonlabored. No wheezes, rhonchi or crackles. Oxygen saturation 95% on room air and he is achieving 1500 mL on his incentive spirometry. - Cardiovascular Details: Regular rhythm and rate. S1 and S2 present, negative for S3, gallop or murmur. No edema present. - Gastrointestinal Gastrointestinal Comment(s): Abdomen is soft, nontender and nondistended. Active bowel sounds present in all 4 abdominal quadrants. No guarding or rigidity. No organomegaly appreciated. Tolerating oral intake. - Genitourinary Genitourinary Comment(s): Continues to void. - Integumentary Integumentary Comment(s): Skin is warm and dry. No clubbing or cyanosis is present. No rash or abnormal pigmentation. - Neurologic Neurologic: Present: CNII-XII intact - Musculoskeletal Musculoskeletal: Present: gait normal, strength equal bilaterally - Psychiatric Psychiatric: Present: A&O x's 3, appropriate affect, intact judgment & insight - Allied health notes Allied health notes reviewed: nursing - Labs CBC & Chem 7: 05/30/20 05:25 05/30/20 05:25 Labs: Abnormal Lab Results - Last 24 Hours (Table) 05/30/20 Range/Units 05:25 BUN/Creatinine Ratio 26.67 H (12.00-20.00) Ratio Calcium 8.3 L (8.7-10.3) mg/dL Microbiology - Last 24 Hours (Table) 05/25/20 15:30 Anaerobic Culture - Final Pleural Fluid Alpha Hemolytic Streptococcus 05/25/20 15:30 Gram Stain - Final Pleural Fluid Body Fluid Culture - Final - Imaging and Cardiology Chest x-ray: report reviewed, image reviewed Assessment and Plan Assessment: 1. Left lower lobe pneumonia with secondary sepsis. Consolidation left lower lobe with moderate sized loculated left sided pleural effusion, Status post placement of left chest pigtail catheter. Pleural fluid anaerobic culture positive for alpha hemolytic streptococcus. 2. Acute leukocytosis, secondary to above 3. Fever 4. Acute hypoxemia 5. History of hyperlipidemia 6. Obstructive sleep apnea with home CPAP use 7. History of traumatic brain injury 8. History of depression Plan: 1. Interventional radiology consult pending for left chest pigtail catheter placement for residual pleural fluid pocket. 2. Continue to monitor daily chest x-rays. 3. Encouraged use of his incentive spirometry 10 times every hour while awake. 4. Pleural fluid cytology consistent for empyema. Pleural fluid anaerobic culture positive for alpha hemolytic streptococcus, antibiotic management per primary care service. 5. Increase activity, ambulate as tolerated. 6. Medical management of other comorbidities per primary care service. 7. More recommendations to follow based on patient's clinical course. Time with Patient: Greater than 30
[2020-05-31 10:12] LABS: INR 1.1 (<1.2)
--- NOTE | 2020-05-31 10:16 | P.PN ---
Subjective Progress Note Date: 05/31/20 Principal diagnosis: Community-acquired pneumonia Patient is doing fairly well today. He denies shortness of breath or pain. No acute events overnight reported by nursing staff. Chest tube was removed and chest x-ray showed stable findings Objective - Vital Signs Vital signs: Vital Signs Temp 98.5 F 05/31/20 07:00 Pulse 76 05/31/20 07:00 Resp 16 05/31/20 07:00 BP 119/68 05/31/20 07:00 Pulse Ox 95 05/31/20 07:00 Intake & Output 05/30/20 05/31/20 05/31/20 18:59 06:59 18:59 Intake Total 1280 400 Balance 1280 400 Intake: Oral 1280 400 Other: Voiding Method Toilet # Voids 3 2 - Exam General: The patient is awake and alert, in no distress Eye: there is normal conjunctiva bilaterally. Neck: The neck is supple, there is no JVD. Cardiovascular: Normal S1-S2, no S3-S4, no murmurs. Respiratory: Lungs clear to auscultation bilaterally Gastrointestinal: Abdomen is soft, nontender Musculoskeletal: There is no pedal edema. Neurological:. Speech is normal. Skin: Skin is warm and dry - Labs CBC & Chem 7: 05/30/20 05:25 05/30/20 05:25 Labs: Microbiology - Last 24 Hours (Table) 05/25/20 15:30 Anaerobic Culture - Final Pleural Fluid Alpha Hemolytic Streptococcus 05/25/20 15:30 Gram Stain - Final Pleural Fluid Body Fluid Culture - Final Assessment and Plan Assessment: This is a 39-year-old male with past medical history noted below who presented to the emergency room with left-sided chest pain and shortness of breath. Patient was evaluated in the ER and currently admitted to the hospital for further management of his medical problems noted below. 1. Community-acquired pneumonia: Started on IV ceftriaxone and azithromycin since admission. Sputum culture with normal juanita. Covid 19 test negative. IV ceftriaxone day #9. Flagyl day #6. I added Flagyl 500 mg 3 times a day on 05/26 given left empyema. 2. Left parapneumonic effusion/empyema: CT of the chest on 05/25 showed interval development of a large pleural effusion status post left chest tube/pigtail insertion on 05/25 with approximately 140 ml of cloudy serous fluid drained. Status post TPA on 05/26 with approximately 2 L drainage per note. chest tube removed on 05/30. Anticipate IR to place another pigtail catheter today to drain the loculated pocket for CT surgery recommendations. Fluid cultures negative to date. Repeat chest x-ray showed interval improvement in the left- sided effusion. Pulmonary and thoracic surgery following closely, appreciate recommendations. 3. Sepsis without septic shock, improved with IV fluid hydration and antibiotic. Lactic acid normal. Blood culture negative 4. Underlying depression and obstructive sleep apnea: Continue home medications and CPAP at night 5. DVT prophylaxis with subcu heparin Today, I reviewed his medication list and lab work results. Continue current regimen. Appreciate strategic planning consultant's recommendations.
--- NOTE | 2020-05-31 12:48 | P.PN ---
Subjective Progress Note Date: 05/31/20 Principal diagnosis: Left lower lobe pneumonia with secondary sepsis, and complicated parapneumonic left-sided pleural effusion On 05/26/2020 patient seen in follow-up on medical surgical floor, yesterday we had the interventional radiology consulted for insertion of pigtail catheter for a complicated parapneumonic left-sided pleural effusion, pleural fluid was sent for analysis, showed exudative fluid with low glucose, high protein, consistent with empyema. Pleural fluid cultures are negative thus far, patient remains on azithromycin and Rocephin for antibiotic coverage, Flagyl was added, he is on room air, pulse oximetry 93%, blood pressure stable, no fever, his breathing is nonlabored, there is better and entry noted at the left lower base, no cough, no signs of any respiratory distress, today's chest x-ray is pending. His white count is trending down, 17.4 on today's labs, hemoglobin is 11.7. On 05/31/2020 patient seen in follow-up on the general medical surgical floor, yesterday his pigtail chest tube was discontinued as it was not the draining much anymore and was not in one of the loculated pockets. Today patient is on room air, with a pulse ox of 95%, patient is afebrile. Today's chest x-ray shows stable left lower lobe infiltrate and small effusion, and the localized area of suspected hydropneumothorax or empyema along the lateral margin of the left upper lobe which is stable in appearance, interventional radiology was reconsulted for possibility of putting in another pigtail chest tube, and patient is scheduled for procedure this afternoon, denies any chest pain, he feels a warm to touch, but has been afebrile according to the vital signs over the last 24 hours. The pleural fluid culture from 05/25/2020 showed alphahemolytic streptococcus, blood cultures have been negative and current antibiotic coverage is oral Flagyl, Rocephin and azithromycin have been discontinued. In view of ongoing chest x-ray findings we will continue the Rocephin and Flagyl at this time Objective - Vital Signs Vital signs: Vital Signs Temp 98.5 F 05/31/20 07:00 Pulse 67 05/31/20 12:20 Resp 18 05/31/20 12:20 BP 127/75 05/31/20 12:20 Pulse Ox 94 L 05/31/20 12:20 Intake & Output 05/30/20 05/31/20 05/31/20 18:59 06:59 18:59 Intake Total 1280 400 Balance 1280 400 Intake: Oral 1280 400 Other: Voiding Method Toilet # Voids 3 2 - Exam GENERAL EXAM: Alert, very pleasant, 39-year-old white male, sitting up in the bed, on room air, with pulse ox of 94% HEAD: Normocephalic/atraumatic. EYES: Normal reaction of pupils, equal size. Conjunctiva pink, sclera white. NOSE: Clear with pink turbinates. THROAT: No erythema or exudates. NECK: No masses, no JVD, no thyroid enlargement, no adenopathy. CHEST: No chest wall deformity. Symmetrical expansion. Interval removal of the left chest pigtail LUNGS: Equal air entry with no crackles, wheeze, rhonchi or dullness. CVS: Regular rate and rhythm, normal S1 and S2, no gallops, no murmurs, no rubs ABDOMEN: Soft, nontender. No hepatosplenomegaly, normal bowel sounds, no guarding or rigidity. EXTREMITIES: No clubbing, no edema, no cyanosis, 2+ pulses and upper and lower extremities. MUSCULOSKELETAL: Muscle strength and tone normal. SPINE: No scoliosis or deformity SKIN: No rashes CENTRAL NERVOUS SYSTEM: Alert and oriented -3. No focal deficits, tone is normal in all 4 extremities. PSYCHIATRIC: Alert and oriented -3. Appropriate affect. Intact judgment and insight. - Labs CBC & Chem 7: 05/30/20 05:25 05/30/20 05:25 Labs: Microbiology - Last 24 Hours (Table) 05/25/20 15:30 Anaerobic Culture - Final Pleural Fluid Alpha Hemolytic Streptococcus 05/25/20 15:30 Gram Stain - Final Pleural Fluid Body Fluid Culture - Final Assessment and Plan Plan: Assessment: 1 left lower lobe pneumonia with secondary sepsis. The patient has extensive consolidation of the left lower lobe in addition to that there is a moderate- sized loculated left-sided pleural effusion that has developed on follow-up CAT scan of the chest, with persistent fevers, leukocytosis, status post left chest pigtail chest tube insertion, with drainage of approximately 140 mL of cloudy serous fluid which was exudative in nature. Patient has received alteplase 4 thus far, computed tomography scan of the chest on 05/29/2020 revealed a marked improvement in the left-sided pleural collection suspected to be empyema, there is a small residual hydropneumothorax, and there is a fluid along the medial margin/pleural space on the left upper lobe anteriorly, small pericardial effusion. Pigtail chest tube was removed on 05/30/2020 however his chest x-ray on 05/31/2020 continues to show stable left lower lobe infiltrate and small ef fusion, and localized. Suspect a hydropneumothorax or empyema, and patient will have another pigtail catheter placed by interventional radiology today. Pleural fluid cultures were positive for alpha hemolytic streptococcus 2 acute leukocytosis, improving 3 acute fever, resolved 4 acute hypoxemia currently on 2 L of oxygen by nasal cannula, improved and patient is on room air now 5 severe sleep apnea with an AHI of 91, currently receiving treatment, the patient is utilizing an APAP on outpatient basis with a minimum pressure of 5 and a maximum pressure of 20 6 history of traumatic brain injury 7 history of depression 8 acid reflux Plan: Patient is going down for interventional radiology to place her on the pigtail catheter in the left side loculated empyema. We'll continue with Rocephin and Flagyl for now, we'll consult ID service for antibiotic management, CT surgery is following, there is a possibility patient may need decortication. We'll continue to follow closely I performed a history & physical examination of the patient and discussed their management with my nurse practitioner, Korin Gaona. I reviewed the nurse practitioner's note and agree with the documented findings and plan of care. Lung sounds are positive for diminished breath sounds. The findings and the impression was discussed with the patient. I attest to the documentation by the nurse practitioner. Time with Patient: Less than 30
[2020-05-31] MEDS ORDERED: ALTEPLASE 10 MG in SODIUM CHLORIDE 0.9% 100 ML IRRIGATION ONE (13:38)
--- NOTE | 2020-05-31 13:53 | CT ---
EXAMINATION TYPE: CT chest tube insertion DATE OF EXAM: 05/31/2020 HISTORY: Left pleural effusion. Chest tube placement for TPA. COMPARISON: CT chest 05/29/2020. Chest radiograph 05/31/2020. HRIS ADMINISTRATOR: Dr. Tayla Rios PROCEDURE: The procedure was discussed with the patient. The risks, complications, benefits, and alternatives we re discussed and any questions were answered. Informed consent was obtained. Preprocedure preliminary imaging demonstrated loculated hydropneumothorax of the left lateral midlung , as well as 5.5 x 3.5 cm recurrent loculated fluid collection at the posteromedial left lung base in region of prior chest tube. Maximal barrier technique was utilized. The skin over suitable path to the abscess was localized with CT and the overlying skin prepped and draped. Lidocaine was used for local anesthesia. A skin gus m stephanie with a scalpel. Access was gained using CT guidance with a 5FR 10cm one-step centesis catheter. A 0.035 inch wire was advanced and the access site was upsized. Subsequently an 8-FR drain was deploy ed within the loculated hydropneumothorax cavity. Catheter fixed in place with stay-fix device and th e cathter was attached to Pleur-evac. No immediate complication. The patient remained in stable condition. Postprocedure imaging demonstrated coiled catheter within the hydropneumothorax cavity. No new pneumo thorax. IMPRESSION: Status post CT-guided 8FR coiled catheter placement within left midlung loculated hydropneumothorax c ollection.
[2020-05-31] MEDS: MORPHINE SULFATE 2 MG/ML SYRINGE IVP PRN ×2 (14:47→21:14)
[2020-05-31] MEDS: KETOROLAC 15 MG/ML 1 ML VIAL IVP SCH (17:15)
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
[2020-06-01] MEDS: KETOROLAC 15 MG/ML 1 ML VIAL IVP SCH ×4 (00:49→17:46)
--- NOTE | 2020-06-01 07:58 | XR ---
EXAMINATION TYPE: XR chest 1V portable DATE OF EXAM: 06/01/2020 COMPARISON: 05/31/2020 INDICATION: Left empyema with pigtail catheter TECHNIQUE: Single frontal view of the chest is obtained. FINDINGS: The heart size is normal. The pulmonary vasculature is normal. There is a density within the left peripheral lung field. Catheter enters on the left. Previous air-f luid level is resolved. The area of density is decreased over the interval. Small left pleural fluid collection remains present and stable. IMPRESSION: 1. Diminished density peripheral left lung. Previous air-fluid level has resolved. Catheter is in pos ition. No pneumothorax is evident. 2. Small stable left pleural fluid collection
[2020-06-01] MEDS ORDERED: ALTEPLASE 10 MG in SODIUM CHLORIDE 0.9% 100 ML IRRIGATION ONE (08:30)
[2020-06-01] MEDS: HEPARIN SODIUM,PORCINE 5,000 UNIT/ML 1 ML VIAL SQ SCH ×2 (09:42→20:36)
[2020-06-01] MEDS: PANTOPRAZOLE 40 MG TABLET PO SCH (09:42)
[2020-06-01] MEDS: CITALOPRAM HYDROBROMIDE 20 MG TAB PO SCH (09:42)
--- NOTE | 2020-06-01 12:08 | P.PN ---
Subjective Progress Note Date: 06/01/20 Principal diagnosis: Left lower lobe pneumonia with secondary sepsis, and complicated parapneumonic left-sided pleural effusion On 05/26/2020 patient seen in follow-up on medical surgical floor, yesterday we had the interventional radiology consulted for insertion of pigtail catheter for a complicated parapneumonic left-sided pleural effusion, pleural fluid was sent for analysis, showed exudative fluid with low glucose, high protein, consistent with empyema. Pleural fluid cultures are negative thus far, patient remains on azithromycin and Rocephin for antibiotic coverage, Flagyl was added, he is on room air, pulse oximetry 93%, blood pressure stable, no fever, his breathing is nonlabored, there is better and entry noted at the left lower base, no cough, no signs of any respiratory distress, today's chest x-ray is pending. His white count is trending down, 17.4 on today's labs, hemoglobin is 11.7. On 05/31/2020 patient seen in follow-up on the general medical surgical floor, yesterday his pigtail chest tube was discontinued as it was not the draining much anymore and was not in one of the loculated pockets. Today patient is on room air, with a pulse ox of 95%, patient is afebrile. Today's chest x-ray shows stable left lower lobe infiltrate and small effusion, and the localized area of suspected hydropneumothorax or empyema along the lateral margin of the left upper lobe which is stable in appearance, interventional radiology was reconsulted for possibility of putting in another pigtail chest tube, and patient is scheduled for procedure this afternoon, denies any chest pain, he feels a warm to touch, but has been afebrile according to the vital signs over the last 24 hours. The pleural fluid culture from 05/25/2020 showed alphahemolytic streptococcus, blood cultures have been negative and current antibiotic coverage is oral Flagyl, Rocephin and azithromycin have been discontinued. In view of ongoing chest x-ray findings we will continue the Rocephin and Flagyl at this time On 06/01/2020 patient seen in follow-up on medical surgical floor, yesterday he had a pigtail chest tube reinserted and her CT guidance by interventional radiology within the left midlung loculated hydropneumothorax collection, and on today's chest x-ray there is diminished density in the peripheral left lung, previous air-fluid level has resolved, catheter is in position, no pneumothorax was evident, and small stable left pleural fluid collection. Patient has about 70 mL of serosanguineous output in the Pleur-evac, the chest tube is to wall suction, the plan is to give the patient on the dose of alteplase today, CT surgery is following and will be administering the alteplase.ID service consultation was requested, Flagyl was discontinued, patient remains on Rocephin, the dose was increased to 2 gm every 24 hours. no acute events overnight, patient is on room air, he does have some mild left chest discomfort, but no acute distress, he is working on incentive spirometer, lung sounds reveal better aeration in the left mid and lower lung, he is afebrile, he has been working on incentive spirometer. Objective - Vital Signs Vital signs: Vital Signs Temp 97.9 F 06/01/20 07:00 Pulse 71 06/01/20 07:00 Resp 16 06/01/20 04:05 BP 110/86 06/01/20 07:00 Pulse Ox 96 06/01/20 07:00 Intake & Output 05/31/20 06/01/20 06/01/20 18:59 06:59 18:59 Intake Total 992 400 Output Total 30 30 Balance 962 370 Intake: Oral 992 400 Output: Chest Tube Drainage 30 30 Pleural Catheter Left 30 30 Other: Voiding Method Toilet Toilet # Voids 1 1 - Exam GENERAL EXAM: Alert, very pleasant, 39-year-old white male, sitting up in the bed, on room air, with pulse ox of 96% HEAD: Normocephalic/atraumatic. EYES: Normal reaction of pupils, equal size. Conjunctiva pink, sclera white. NOSE: Clear with pink turbinates. THROAT: No erythema or exudates. NECK: No masses, no JVD, no thyroid enlargement, no adenopathy. CHEST: No chest wall deformity. Symmetrical expansion. left chest pigtail ch est tube in place connected to Pleur-evac, with 70 mL of thin serosanguineous output in the Pleur-evac, to wall suction with no evidence of air leak LUNGS: Equal air entry with no crackles, wheeze, rhonchi or dullness. CVS: Regular rate and rhythm, normal S1 and S2, no gallops, no murmurs, no rubs ABDOMEN: Soft, nontender. No hepatosplenomegaly, normal bowel sounds, no guarding or rigidity. EXTREMITIES: No clubbing, no edema, no cyanosis, 2+ pulses and upper and lower extremities. MUSCULOSKELETAL: Muscle strength and tone normal. SPINE: No scoliosis or deformity SKIN: No rashes CENTRAL NERVOUS SYSTEM: Alert and oriented -3. No focal deficits, tone is normal in all 4 extremities. PSYCHIATRIC: Alert and oriented -3. Appropriate affect. Intact judgment and insight. - Labs CBC & Chem 7: 05/30/20 05:25 05/30/20 05:25 Assessment and Plan Plan: Assessment: 1 left lower lobe pneumonia with secondary sepsis. The patient has extensive consolidation of the left lower lobe in addition to that there is a moderate- sized loculated left-sided pleural effusion that has developed on follow-up CAT scan of the chest, with persistent fevers, leukocytosis, status post left chest pigtail chest tube insertion, with drainage of approximately 140 mL of cloudy serous fluid which was exudative in nature. Patient has received alteplase 4 thus far, computed tomography scan of the chest on 05/29/2020 revealed a marked improvement in the left-sided pleural collection suspected to be empyema, there is a small residual hydropneumothorax, and there is a fluid along the medial margin/pleural space on the left upper lobe anteriorly, small pericardial effusion. Pigtail chest tube was removed on 05/30/2020 however his chest x-ray on 05/31/2020 continues to show stable left lower lobe infiltrate and small effusion, and localized. Suspect a hydropneumothorax or empyema, and patient will have another pigtail catheter placed by interventional radiology today. Pleural fluid cultures were positive for alpha hemolytic streptococcus On 05/31/2020 left-sided pigtail chest tube was reinserted under CT guidance into the left loculated hydropneumothorax with fluid collection, patient will receive another dose of alteplase today 2 acute leukocytosis, improving 3 acute fever, resolved 4 acute hypoxemia currently on 2 L of oxygen by nasal cannula, improved and patient is on room air now 5 severe sleep apnea with an AHI of 91, currently receiving treatment, the patient is utilizing an APAP on outpatient basis with a minimum pressure of 5 and a maximum pressure of 20 6 history of traumatic brain injury 7 history of depression 8 acid reflux Plan: Case discussed with CT surgery, patient will receive another dose of alteplase. the chest x-ray has been reviewed, showing diminished density in the peripheral left lung, clinically stable, continue with ID service recommendation is for Antibiotics, current antibiotic coverage is with Rocephin only, no fever or chills, encourage deep breathing and coughing, continue to monitor chest tube output, follow-up chest x-ray in the morning I performed a history & physical examination of the patient and discussed their management with my nurse practitioner, Korin Gaona. I reviewed the nurse practitioner's note and agree with the documented findings and plan of care. Lung sounds are positive for diminished breath sounds. The findings and the imp ression was discussed with the patient. I attest to the documentation by the nurse practitioner. Time with Patient: Less than 30
--- NOTE | 2020-06-01 13:52 | P.PN ---
Subjective Progress Note Date: 06/01/20 Principal diagnosis: Pneumonia with parapneumonic effusion/empyema CC: shortness of breath patient states that he is doing well. He states that he has a mild cough, however is not able to cough anything out. He is currently satting well on room air. He denies any fever and chills. Objective - Vital Signs Vital signs: Vital Signs Temp 97.9 F 06/01/20 07:00 Pulse 71 06/01/20 07:00 Resp 16 06/01/20 04:05 BP 110/86 06/01/20 07:00 Pulse Ox 96 06/01/20 07:00 Intake & Output 05/31/20 06/01/20 06/01/20 18:59 06:59 18:59 Intake Total 992 400 Output Total 30 30 Balance 962 370 Intake: Oral 992 400 Output: Chest Tube Drainage 30 30 Pleural Catheter Left 30 30 Other: Voiding Method Toilet Toilet # Voids 1 1 - Exam General examination - Alert and Oriented 3 in NAD Heart - + S1S2 no murmurs Lungs - Clear to auscultation, + chest tube Abdomen soft NT ND +ve BS Extremities - No edema [employer]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 Patient was evaluated in the ER and currently admitted to the hospital for further management of his medical problems noted below. 1. Community-acquired pneumonia: See antibiotic recommendations as below 2. Left parapneumonic effusion/empyema: CT of the chest on 05/25 showed interval development of a large pleural effusion status post left chest tube/pigtail insertion on 05/25 with approximately 140 ml of cloudy serous fluid drained. Status post TPA on 05/26 with approximately 2 L drainage per note. chest tube removed on 05/30. Due to minimal drainage and chest tube was not in one of the loculated pockets. Chest tube was removed and another chest tube was placed on 05/31/2020. Patient has 70 mL output from the chest tube today. Cultures from pleural fluid alphahemolytic streptococcus. Patient started on IV ceftriaxone 2 g daily. Per ID patient will need a midline at discharge. 3. Sepsis without septic shock, improved with IV fluid hydration and antibiotic. Lactic acid normal. Blood culture negative 4. Underlying depression and obstructive sleep apnea: Continue home medications and CPAP at night 5. DVT prophylaxis with subcu heparin
[2020-06-02] MEDS: KETOROLAC 15 MG/ML 1 ML VIAL IVP SCH ×3 (00:11→12:38)
--- NOTE | 2020-06-02 01:12 | PN ---
PROGRESS NOTE DATE OF SERVICE: 06/01/2020 REASON FOR FOLLOWUP: Left-sided empyema. INTERVAL HISTORY: The patient is currently afebrile. He is breathing slightly comfortably. Left-sided chest pain slightly decreased. No nausea, no vomiting. No abdominal pain, no diarrhea. PHYSICAL EXAMINATION: Blood pressure 125/83, pulse of 85, temperature 98.2. He is 96% on room air. General description is a middle-aged male lying in bed in no distress. RESPIRATORY SYSTEM: Unlabored breathing, decreased breath sounds at the bases. No wheeze. HEART: S1, S2. Regular rate and rhythm. ABDOMEN: Soft. No tenderness. LABS: No new labs have been obtained today. DIAGNOSTIC IMPRESSION AND PLAN: Patient with left-sided empyema, status post chest tube placement x2. The patient is currently covered with Rocephin 2 grams daily to continue. He will need a Midline for outpatient IV Rocephin for at least 2 weeks and close outpatient followup. MMODL / IJN: [id number] /
[2020-06-02 01:40] VITALS: RESP 18; TEMP 97.9
[2020-06-02 06:32] LABS: Basophils # (A) 0.1 k/uL (0-0.2); Basophils % (A) 1 %; Eosinophils # (A) 0.4 k/uL (0-0.7); Eosinophils % (A) 4 %; HCT 39.4 % (39.0-53.0); Lymphocytes # (A) 1.6 k/uL (1.0-4.8); Lymphocytes % (A) 18 %; Mean Platelet Volume 6.9; Monocytes # (A) 0.5 k/uL (0-1.0); Monocytes % (A) 6 %; Neutrophils # (A) 6.2 k/uL (1.3-7.7); Neutrophils % (A) 69 %; Platelet Count 460 k/uL (150-450); RBC 4.33 m/uL (4.30-5.90); RDW 11.8 % (11.5-15.5); WBC 8.9 k/uL (3.8-10.6)
--- NOTE | 2020-06-02 07:40 | XR ---
EXAMINATION TYPE: XR chest 2V DATE OF EXAM: 06/02/2020 COMPARISON: 06/01/2020 HISTORY: Chest pain TECHNIQUE: Frontal and lateral views of the chest are obtained. FINDINGS: Left lower lobe pleural-parenchymal opacity persists. Pleural catheter is noted to be in place and un changed from prior study. Overall the appearance is slightly improved. No evidence for pneumothorax. No evidence for pneumothorax. No pleural effusion. The cardiac silhouette size is within normal limits. The osseous structures are grossly intact. IMPRESSION: 1. Left lower lobe pleural-parenchymal opacity persists. Pleural catheter is noted to be in place an d unchanged from prior study. Overall the appearance is slightly improved.
--- NOTE | 2020-06-02 07:50 | P.PN ---
Subjective Progress Note Date: 06/02/20 Principal diagnosis: Left lower lobe pneumonia with parapneumonic effusion/empyema with culture growing alpha hemolytic streptococcus, consolidation left lower lobe with moderate sized loculated left sided pleural effusion, acute leukocytosis, fever, acute hypoxemia, sepsis without septic shock. Previous medical history of hyperlipidemia, obstructive sleep apnea with home CPAP use, traumatic brain injury, depression POD #8 insertion of first left-sided pigtail catheter, POD #2 insertion of second left-sided pigtail catheter The patient currently sitting up in bed in no acute distress. States pain is controlled on current medication regimen, denies shortness of breath, states he feels significantly better than when he came in. Left-sided pigtail catheter present, connected to atrium. Alteplase instilled yesterday, only 30 mL return in the last 24 hours. No new concerns. Objective - Vital Signs Vital signs: Vital Signs Temp 97.9 F 06/02/20 01:00 Pulse 65 06/02/20 01:00 Resp 18 06/02/20 04:00 BP 106/65 06/02/20 01:00 Pulse Ox 96 06/02/20 01:00 Intake & Output 06/01/20 06/02/20 06/02/20 18:59 06:59 18:59 Intake Total 300 Output Total 28 5 Balance -28 295 Intake: Oral 300 Output: Chest Tube Drainage 28 5 Pleural Catheter Left 28 5 Other: Voiding Method Toilet # Voids 3 1 - Constitutional General appearance: Present: cooperative, no acute distress - Respiratory Details: Lung sounds diminished in the left lung base. Respirations are symmetrical, non- labored. Oxygen saturation are 96% on room air. Achieving 1500 mL on his incentive spirometry. Left pigtail pleural catheter in place to low continuous wall suction. 5 mL output overnight, 30 mL in the last 24 hours - Cardiovascular Details: S1, S2 present. Regular rhythm and rate. Palpable peripheral pulses bilaterally. No edema present. No calf pain or tenderness noted. - Gastrointestinal Gastrointestinal Comment(s): Abdomen soft, nontender, nondistended. Active bowel sounds present 4 quadrants. Tolerating diet. - Genitourinary Genitourinary Comment(s): Continues to void - Integumentary Integumentary Comment(s): Skin is warm and dry with evidence of good perfusion - Neurologic Neurologic: Present: CNII-XII intact - Musculoskeletal Musculoskeletal: Present: gait normal, strength equal bilaterally - Psychiatric Psychiatric: Present: A&O x's 3, appropriate affect, intact judgment & insight - Allied health notes Allied health notes reviewed: nursing - Labs CBC & Chem 7: 06/02/20 06:17 05/30/20 05:25 Labs: Abnormal Lab Results - Last 24 Hours (Table) 06/02/20 Range/Units 06:17 Plt Count 460 H (150-450) k/uL - Imaging and Cardiology Chest x-ray: image reviewed Assessment and Plan Assessment: 1. Left lower lobe pneumonia parapneumonic effusion/empyema with culture growing alpha hemolytic streptococcus, consolidation left lower lobe with moderate sized loculated left sided pleural effusion, sepsis without septic shock, status post pigtail catheter insertion x2. 2. Acute leukocytosis, secondary to above 3. Fever 4. Acute hypoxemia, currently on room air 5. History of hyperlipidemia 6. Obstructive sleep apnea with home CPAP use 7. History of traumatic brain injury 8. History of depression Plan: 1. Will discontinue pigtail, repeat CXR in am 2. Encouraged insulin spirometry 10 times every hour while awake 3. Antibiotics per infectious disease, Dr. Mendoza is recommending outpatient IV ceftriaxone for 2 weeks, patient will need PICC line 4. Increase activity, ambulate as tolerated 5. GI/DVT prophylaxis 6. Medical management of other comorbidities per primary care service 7. No surgical intervention planned. 8. Once pigtail removed and PICC line placed patient may be discharged home Time with Patient: Greater than 30
[2020-06-02 08:17] VITALS: BP 125/76; PULSE 73
[2020-06-02] MEDS: CITALOPRAM HYDROBROMIDE 20 MG TAB PO SCH (08:47)
[2020-06-02] MEDS: PANTOPRAZOLE 40 MG TABLET PO SCH (08:48)
[2020-06-02] MEDS: HEPARIN SODIUM,PORCINE 5,000 UNIT/ML 1 ML VIAL SQ SCH (08:48)
[2020-06-02 09:50] LABS: African American GFR (CKD) 128.6 (60.0-200.0); Anion Gap 5.5 mmol/L (4.00-12.00); Calcium 8.7 mg/dL (8.7-10.3); Carbon Dioxide 28.5 mmol/L (21.6-31.8); Potassium 5.3 mmol/L (3.5-5.5)
--- NOTE | 2020-06-02 12:21 | P.DS ---
Providers Date of admission: 05/23/20 16:50 Expected date of discharge: 06/02/20 Attending physician: Tin Lowe MD Consults: 05/23/20 17:35 Consult Physician Routine Consulting Provider: Nicolas Bruce Consult Reason/Comments: PNA, hypoxic respiratory failure Do you want consulting provider notified?: Yes, Notify in am 05/26/20 10:18 Consult Physician Routine Consulting Provider: Luis A Moreira Consult Reason/Comments: empyema, left pig tail Do you want consulting provider notified?: Yes 05/31/20 12:43 Consult Physician Routine Consulting Provider: Devon Mendoza Consult Reason/Comments: left empyema Do you want consulting provider notified?: Yes Primary care physician: Katie Herrera Hospital Course: Discharge Diagnosis: Community-acquired pneumonia Left parapneumonic effusion/empyema Sepsis without septic shock Obstructive sleep apnea Hospital Course: Patient is a 39-year-old male who presented to the ED with left-sided chest pain and shortness of breath. Patient was found to have community-acquired pneumonia. During hospitalization patient's symptoms were not improving so he had a CT chest done on 05/25 that showed interval development of large pleural effusion. Patient had a chest tube placed on 05/25. After there was minimal fluid output from the chest tube it was removed. Patient then had another chest tube placed in another pocket of pleural effusion. Cultures from the pleural fluid grew alphahemolytic streptococcus. At the time of discharge infectious disease recommended 2 weeks of IV ceftriaxone 2 g daily. At the time of discharge patient was doing well he was afebrile and he states that his cough chest pain and shortness of breath have improved. Patient had a chest x-ray done on the day of discharge which showed improvement in his left pleural effusion. Chest tube was removed by CT surgery. Patient had a PICC line placed. manager transfusion arranged for home infusion of his antibiotics. Patient was then deemed stable for discharge home. General examination - Alert and Oriented 3 in NAD Heart - + S1S2 no murmurs Lungs - Clear to auscultation Abdomen soft NT ND +ve BS Extremities - No edema [employer] - Moving all 4 extremities spontaneously Psych - Calm and cooperative A total of 37 minutes of time were spent preparing this complex discharge summary . Patient Condition at Discharge: Good Plan - Discharge Summary Discharge Rx Participant: No New Discharge Prescriptions: New cefTRIAXone [Rocephin] 2,000 mg IVP Q24HR #14 vial Continue Meloxicam [Mobic] 15 mg PO DAILY Citalopram Hydrobromide [Citalopram HBr] 40 mg PO DAILY Omeprazole 20 mg PO DAILY Discharge Medication List Citalopram Hydrobromide [Citalopram HBr] 40 mg PO DAILY 10/25/15 [History] Meloxicam [Mobic] 15 mg PO DAILY 10/25/15 [History] Omeprazole 20 mg PO DAILY 05/23/20 [History] cefTRIAXone [Rocephin] 2,000 mg IVP Q24HR #14 vial 06/02/20 [Rx] Follow up Appointment(s)/Referral(s): [facility], [NON-STAFF] - As Needed [facility] [NON-STAFF] - As Needed (Will deliver antibiotic and supplies to home.) Katie Herrera MD [Primary Care Provider] - 06/08/20 11:20 am Devon Mendoza MD [STAFF PHYSICIAN] - 2 Weeks Nicolas Bruce MD [STAFF PHYSICIAN] - 1 Week Ambulatory/Diagnostic Orders: Basic Metabolic Panel [LAB.AMB] Location: None Selected C Reactive Protein [LAB.AMB] Location: None Selected Complete Blood Count w/diff [LAB.AMB] Location: None Selected Discharge Disposition: HOME SELF-CARE
--- NOTE | 2020-06-02 12:34 | P.PN ---
Subjective Progress Note Date: 06/02/20 Principal diagnosis: Left lower lobe pneumonia with secondary sepsis, and complicated parapneumonic left-sided pleural effusion On 05/26/2020 patient seen in follow-up on medical surgical floor, yesterday we had the interventional radiology consulted for insertion of pigtail catheter for a complicated parapneumonic left-sided pleural effusion, pleural fluid was sent for analysis, showed exudative fluid with low glucose, high protein, consistent with empyema. Pleural fluid cultures are negative thus far, patient remains on azithromycin and Rocephin for antibiotic coverage, Flagyl was added, he is on room air, pulse oximetry 93%, blood pressure stable, no fever, his breathing is nonlabored, there is better and entry noted at the left lower base, no cough, no signs of any respiratory distress, today's chest x-ray is pending. His white count is trending down, 17.4 on today's labs, hemoglobin is 11.7. On 05/31/2020 patient seen in follow-up on the general medical surgical floor, yesterday his pigtail chest tube was discontinued as it was not the draining much anymore and was not in one of the loculated pockets. Today patient is on room air, with a pulse ox of 95%, patient is afebrile. Today's chest x-ray shows stable left lower lobe infiltrate and small effusion, and the localized area of suspected hydropneumothorax or empyema along the lateral margin of the left upper lobe which is stable in appearance, interventional radiology was reconsulted for possibility of putting in another pigtail chest tube, and patient is scheduled for procedure this afternoon, denies any chest pain, he feels a warm to touch, but has been afebrile according to the vital signs over the last 24 hours. The pleural fluid culture from 05/25/2020 showed alphahemolytic streptococcus, blood cultures have been negative and current antibiotic coverage is oral Flagyl, Rocephin and azithromycin have been discontinued. In view of ongoing chest x-ray findings we will continue the Rocephin and Flagyl at this time On 06/01/2020 patient seen in follow-up on medical surgical floor, yesterday he had a pigtail chest tube reinserted and her CT guidance by interventional radiology within the left midlung loculated hydropneumothorax collection, and on today's chest x-ray there is diminished density in the peripheral left lung, previous air-fluid level has resolved, catheter is in position, no pneumothorax was evident, and small stable left pleural fluid collection. Patient has about 70 mL of serosanguineous output in the Pleur-evac, the chest tube is to wall suction, the plan is to give the patient on the dose of alteplase today, CT surgery is following and will be administering the alteplase.ID service consultation was requested, Flagyl was discontinued, patient remains on Rocephin, the dose was increased to 2 gm every 24 hours. no acute events overnight, patient is on room air, he does have some mild left chest discomfort, but no acute distress, he is working on incentive spirometer, lung sounds reveal better aeration in the left mid and lower lung, he is afebrile, he has been working on incentive spirometer., On 06/02/2020 patient seen in follow-up on medical surgical floor, he is resting comfortably in bed, denies any dyspnea, his pigtail catheter was discontinued, he had only drained 33 mL over the last 24 hours, today's chest x-ray shows persistence of left lower lobe opacity, overall appearance was slightly improved. Patient received another dose of alteplase yesterday with no significant return. Afebrile, hemodynamically stable, remains pulse ox of 98%, breathing is comfortable, lung sounds reveal diminished breath sounds at the left lower base, no crackles, no rhonchi. Intermittent radiology discontinued the pigtail chest tube. ID service is following. Patient is on Rocephin for antibiotic coverage. Infectious disease is recommending 2 weeks of IV ceftriaxone 2 g daily. Patient had a PICC line placed. backpackers manager arranged for home infusion of his antibiotics. No acute events overnight, discharge is pending for discharge home today Objective - Vital Signs Vital signs: Vital Signs Temp 97.9 F 06/02/20 07:00 Pulse 73 06/02/20 07:00 Resp 18 06/02/20 04:00 BP 125/76 06/02/20 07:00 Pulse Ox 98 06/02/20 07:00 Intake & Output 06/01/20 06/02/20 06/02/20 18:59 06:59 18:59 Intake Total 300 Output Total 28 5 Balance -28 295 Intake: Oral 300 Output: Chest Tube Drainage 28 5 Pleural Catheter Left 28 5 Other: Voiding Method Toilet # Voids 3 1 - Exam GENERAL EXAM: Alert, very pleasant, 39-year-old white male, sitting up in the bed, on room air, with pulse ox of 98% HEAD: Normocephalic/atraumatic. EYES: Normal reaction of pupils, equal size. Conjunctiva pink, sclera white. NOSE: Clear with pink turbinates. THROAT: No erythema or exudates. NECK: No masses, no JVD, no thyroid enlargement, no adenopathy. CHEST: No chest wall deformity. Symmetrical expansion. Left chest pigtail chest tube catheter discontinued LUNGS: Equal air entry with no crackles, wheeze, rhonchi or dullness. CVS: Regular rate and rhythm, normal S1 and S2, no gallops, no murmurs, no rubs ABDOMEN: Soft, nontender. No hepatosplenomegaly, normal bowel sounds, no guarding or rigidity. EXTREMITIES: No clubbing, no edema, no cyanosis, 2+ pulses and upper and lower extremities. MUSCULOSKELETAL: Muscle strength and tone normal. SPINE: No scoliosis or deformity SKIN: No rashes CENTRAL NERVOUS SYSTEM: Alert and oriented -3. No focal deficits, tone is normal in all 4 extremities. PSYCHIATRIC: Alert and oriented -3. Appropriate affect. Intact judgment and insight. - Labs CBC & Chem 7: 06/02/20 06:17 06/02/20 06:17 Labs: Abnormal Lab Results - Last 24 Hours (Table) 06/02/20 06/02/20 Range/Units 06:17 06:17 Plt Count 460 H (150-450) k/uL BUN/Creatinine Ratio 25.00 H (12.00-20.00) Ratio Assessment and Plan Plan: Assessment: 1 left lower lobe pneumonia with secondary sepsis. The patient has extensive consolidation of the left lower lobe in addition to that there is a moderate- sized loculated left-sided pleural effusion that has developed on follow-up CAT scan of the chest, with persistent fevers, leukocytosis, status post left chest pigtail chest tube insertion, with drainage of approximately 140 mL of cloudy serous fluid which was exudative in nature. Patient has received alteplase 4 thus far, computed tomography scan of the chest on 05/29/2020 revealed a marked improvement in the left-sided pleural collection suspected to be empyema, there is a small residual hydropneumothorax, and there is a fluid along the medial margin/pleural space on the left upper lobe anteriorly, small pericardial effusion. Pigtail chest tube was removed on 05/30/2020 however his chest x-ray on 05/31/2020 continues to show stable left lower lobe infiltrate and small effusion, and localized. Suspect a hydropneumothorax or empyema, and patient will have another pigtail catheter placed by interventional radiology today. Pleural fluid cultures were positive for alpha hemolytic streptococcus On 05/31/2020 left-sided pigtail chest tube was reinserted under CT guidance into the left loculated hydropneumothorax with fluid collection, patient will receive another dose of alteplase today On 06/02/2020 left-sided pigtail chest tube has been discontinued, yesterday patient received another dose of alteplase with no significant return. Clinically stable, afebrile, going home today on 2 more weeks of IV Rocephin 2 acute leukocytosis, improving 3 acute fever, resolved 4 acute hypoxemia currently on 2 L of oxygen by nasal cannula, improved and patient is on room air now 5 severe sleep apnea with an AHI of 91, currently receiving treatment, the patient is utilizing an APAP on outpatient basis with a minimum pressure of 5 and a maximum pressure of 20 6 history of traumatic brain injury 7 history of depression 8 acid reflux Plan: Patient is doing well, pigtail chest tube has been discontinued, his been afebrile, he remains on Rocephin for antibiotic coverage, vitals have been stable, patient is going home today with the PICC line in place on 2 more weeks of IV Rocephin. Will need outpatient follow-up with Dr. Bruce in the office in one week I performed a history & physical examination of the patient and discussed their management with my nurse practitioner, Korin Gaona. I reviewed the nurse practitioner's note and agree with the documented findings and plan of care. Lung sounds are positive for diminished breath sounds. The findings and the impression was discussed with the patient. I attest to the documentation by the nurse practitioner. Time with Patient: Less than 30
--- NOTE | 2020-06-02 14:47 | PN ---
PROGRESS NOTE DATE OF SERVICE: 06/02/2020 REASON FOR FOLLOWUP: Left-sided empyema. INTERVAL COURSE: He the patient is currently afebrile. The patient is breathing comfortably. Patient denies having any chest pain, shortness of breath. No nausea, no abdominal pain, no diarrhea However, feeling better, wants to go home. PHYSICAL EXAMINATION: Blood pressure 125/76, pulse of 70, temperature 97.9. She is 98% on room air. General description is a middle-aged male, lying in bed in no distress. RESPIRATORY SYSTEM: Unlabored breathing, decreased breath sounds in the base, with no wheeze. HEART: S1, S2. Regular rate and rhythm. ABDOMEN: Soft. No tenderness. LABS: Hemoglobin 13.1, white count 8.9, creatinine 0.8. DIAGNOSTIC IMPRESSION AND PLAN: Patient with left-sided empyema, status post chest tube insertion x2. Patient's chest x-ray unstable. Patient tolerated Rocephin 2 g daily. White count normalized and continue outpatient for 2 weeks and close outpatient followup. Questions and concerns were answered. MMODL / IJN: [id number] /
--- NOTE | 2020-06-03 14:33 | P.PN ---
Subjective Progress Note Date: 06/01/20 Principal diagnosis: Left lower lobe pneumonia with secondary sepsis, consolidation left lower lobe with moderate sized loculated left sided pleural effusion, acute leukocytosis, fever, acute hypoxemia. Past medical history significant for hyperlipidemia, obstructive sleep apnea with home CPAP use, traumatic brain injury, and depression. POD #6 insertion of left-sided pigtail catheter, placed by interventional radiology left chest pigtail catheter was removed without incident on 05/30/2020. POD #1 insertion of left sided pigtail catheter, placed by interventional radio logy. The patient was seen in follow-up today 06/01/2020 at his bedside on the fourth floor medical surgical unit. He is sitting up in bed, is awake, alert and oriented 3 and is in no acute apparent distress. Currently denies any complaints of pain or shortness of breath. Left pleural pigtail catheter remains in place to low continuous wall suction -20 cm H2O. No air leak is present. Draining thin serosanguineous drainage with 80 mL output in the last 24 hours. He received a dose of alteplase 10 mg/100 ml normal saline yesterday 05/31/2020. He remains afebrile the last 24 hours, oxygen saturations 96% on room air and he is achieving 2000 mL on his incentive spirometry. He remains on Rocephin 2 g IV piggyback every 24 hours managed by infectious disease. A chest x-ray was completed this morning which per the report shows diminished density peripheral left lung with previous air fluid level resolved and a small stable left pleural fluid collection. Objective - Vital Signs Vital signs: Vital Signs Temp 97.9 F 06/01/20 07:00 Pulse 71 06/01/20 07:00 Resp 16 06/01/20 04:05 BP 110/86 06/01/20 07:00 Pulse Ox 96 06/01/20 07:00 Intake & Output 05/31/20 06/01/20 06/01/20 18:59 06:59 18:59 Intake Total 992 400 Output Total 30 30 Balance 962 370 Intake: Oral 992 400 Output: Chest Tube Drainage 30 30 Pleural Catheter Left 30 30 Other: Voiding Method Toilet Toilet # Voids 1 1 - Constitutional General appearance: Present: cooperative, no acute distress, obese - EENT Eyes: Present: PERRLA, normal appearance. Absent: scleral icterus ENT: Present: hearing grossly normal - Neck Details: Neck is supple, no JVD, no lymphadenopathy. - Respiratory Details: Lung sounds essentially clear throughout, diminished to his left lower lobe. No wheezes, rhonchi or crackles. Respirations are symmetrical and nonlabored. Oxygen saturation is 96% on room air. Achieving 2000 mL on his incentive spirometry. Left pleural pigtail catheter remains in place low continuous wall suction -20 cm H2O. No air leak is present. Draining thin serosanguineous drainage with 80 mL output in the last 24 hours. - Cardiovascular Details: Regular rhythm and rate. S1 and S2 present, negative for S3, gallop or murmur. No edema present. - Gastrointestinal Gastrointestinal Comment(s): Abdomen is soft, nontender nondistended. Active bowel sounds present in all 4 abdominal quadrants. No guarding or rigidity. No organomegaly appreciated. - Genitourinary Genitourinary Comment(s): Continues to void. - Integumentary Integumentary Comment(s): Skin is warm and dry. No clubbing or cyanosis is present. Dressing is clean, dry and intact to his left chest pigtail catheter site. - Neurologic Neurologic: Present: CNII-XII intact - Musculoskeletal Musculoskeletal: Present: gait normal, strength equal bilaterally - Psychiatric Psychiatric: Present: A&O x's 3, appropriate affect, intact judgment & insight - Allied health notes Allied health notes reviewed: nursing - Labs CBC & Chem 7: 06/02/20 06:17 06/02/20 06:17 - Imaging and Cardiology Chest x-ray: report reviewed, image reviewed Assessment and Plan Assessment: 1. Left lower lobe pneumonia with secondary sepsis. Consolidation left lower lobe with moderate sized loculated left sided pleural effusion, Status post placement of left chest pigtail catheter. Pleural fluid anaerobic culture positive for alpha hemolytic streptococcus. 2. Acute leukocytosis, secondary to above 3. Fever 4. Acute hypoxemia 5. History of hyperlipidemia 6. Obstructive sleep apnea with home CPAP use 7. History of traumatic brain injury 8. History of depression Plan: 1. Maintain left chest pigtail catheter to low continuous wall suction -20 cm H2O. 2. Continue to monitor daily chest x-rays. 3. Encouraged use of his incentive spirometry 10 times every hour while awake. 4. Pleural fluid cytology consistent for empyema. Pleural fluid anaerobic culture positive for alpha hemolytic streptococcus, antibiotic management per primary care service. Continue antibiotic, managed by infectious disease. 5. Increase activity, ambulate as tolerated. 6. Medical management of other comorbidities per primary care service. 7. More recommendations to follow based on patient's clinical course. Seen and examined and agree with the plan. Time with Patient: Greater than 30
== END 2020-06-02 14:20 | disposition home or self-care (01) | DRG 871 ==
LOC: EC 14:05 → OBSVTOIN 16:50 → 1SOBS 16:50 → 4SSUR 05-25 16:00
PROVIDERS: ADMIT Family Medicine; ATTEND Family Medicine
PROC: 0W9B30Z Drainage of Left Pleural Cavity with Drainage Device, Percutaneous Approach (ICD-10-PCS; principal; 2020-05-25)
PROC: 0W9B30Z Drainage of Left Pleural Cavity with Drainage Device, Percutaneous Approach (ICD-10-PCS; 2020-05-31)
DX: A41.9 Sepsis, unspecified organism (principal); J15.9 Unspecified bacterial pneumonia; J86.9 Pyothorax without fistula; J96.01 Acute respiratory failure with hypoxia; I31.3 Pericardial effusion (noninflammatory); J91.8 Pleural effusion in other conditions classified elsewhere; J94.8 Other specified pleural conditions; J98.11 Atelectasis; E78.5 Hyperlipidemia, unspecified; F32.9 Major depressive disorder, single episode, unspecified; G47.33 Obstructive sleep apnea (adult) (pediatric); Z99.89 Dependence on other enabling machines and devices; H91.92 Unspecified hearing loss, left ear; Z87.820 Personal history of traumatic brain injury; K21.9 Gastro-esophageal reflux disease without esophagitis; Z20.828 Contact with and (suspected) exposure to other viral communicable diseases; Z79.1 Long term (current) use of non-steroidal anti-inflammatories (NSAID); Z82.0 Family history of epilepsy and other diseases of the nervous system; Z82.5 Family history of asthma and other chronic lower respiratory diseases; Z81.1 Family history of alcohol abuse and dependence; Z83.79 Family history of other diseases of the digestive system; Z79.899 Other long term (current) drug therapy; M19.90 Unspecified osteoarthritis, unspecified site; Z87.891 Personal history of nicotine dependence
CPT/HCPCS: 32551; 36410; 36415; 71045; 71046; 71250; 71275; 74177; 76937; 80048; 80053; 82945; 83036; 83605; 83615; 83735; 83880; 84157; 84484; 85025; 85610; 85730; 86140; 87040; 87070; 87075; 87102; 87116; 87205; 87206; 88108; 88305; 89050; 93005; 94640; 96361; 96365; 99285

== ENCOUNTER → 2020-09-13 | Outpatient (CLI) | payer BC ==
--- NOTE | 2020-09-13 15:58 | XR ---
EXAMINATION TYPE: XR chest 2V DATE OF EXAM: 09/13/2020 COMPARISON: 06/02/2020 HISTORY: Follow-up pneumonia TECHNIQUE: Frontal and lateral views of the chest are obtained. FINDINGS: Left-sided pleural catheter is no longer in place. Patchy density left lower lobe and pleural parench ymal density left lower lobe much improved although residual changes persist. No evidence for pneumothorax. No pleural effusion. The cardiac silhouette size is within normal limits. The osseous structures are grossly intact. IMPRESSION: 1. Patchy density left lower lobe and pleural parenchymal density left lower lobe much improved alth ough residual changes persist.
== END | disposition home or self-care (01) ==
LOC: RADXRMAIN 15:18
PROVIDERS: ATTEND Family Medicine
DX: J98.4 Other disorders of lung (principal); Z87.01 Personal history of pneumonia (recurrent)
CPT/HCPCS: 71046

== ENCOUNTER 2022-07-08 10:12 | Emergency (ER) | payer BC ==
[2022-07-08 10:17] VITALS: BP 137/86; PULSE 73; RESP 18; TEMP 97.4
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
[2022-07-08 11:12] LABS: Basophils # (A) 0.1 k/uL (0-0.2); Basophils % (A) 1 %; Eosinophils # (A) 0.3 k/uL (0-0.7); Eosinophils % (A) 6 %; HCT 42.6 % (39.0-53.0); HGB 15.7 gm/dL (13.0-17.5); Lymphocytes # (A) 1.2 k/uL (1.0-4.8); Lymphocytes % (A) 24 %; MCH 31.5 pg (25.0-35.0); MCHC 36.9 g/dL (31.0-37.0); MCV 85.4 fL (80.0-100.0); Mean Platelet Volume 8.6; Monocytes # (A) 0.6 k/uL (0-1.0); Monocytes % (A) 11 %; Neutrophils # (A) 2.8 k/uL (1.3-7.7); Neutrophils % (A) 56 %; Platelet Count 176 k/uL (150-450); RBC 4.99 m/uL (4.30-5.90); RDW 11.8 % (11.5-15.5)
--- NOTE | 2022-07-08 11:12 | XR ---
EXAMINATION TYPE: XR chest 2V DATE OF EXAM: 07/08/2022 COMPARISON: 09/13/2020 HISTORY: 41-year-old male with chest pain TECHNIQUE: PA and lateral views FINDINGS: The cardiomediastinal silhouette, aorta, and pulmonary vasculature are within normal limits. Mild int erstitial prominence. Mild hyperinflation. No consolidation or pleural effusion. IMPRESSION: There may be underlying COPD. Clinically correlate. No acute process seen.
[2022-07-08 11:23] LABS: ALT 31 U/L (4-49); AST 37 U/L (17-59); African American GFR (CKD) >90 (>60 ml/min/1.73 sqM); Albumin 4.5 g/dL (3.5-5.0); Alkaline Phosphatase 59 U/L (38-126); Anion Gap 7 mmol/L; Blood Urea Nitrogen 19 mg/dL (9-20); Carbon Dioxide 24 mmol/L (22-30); Chloride 105 mmol/L (98-107); Glucose 93 mg/dL (74-99); Magnesium 1.8 mg/dL (1.6-2.3); Non-African American GFR(CKD) >90 (>60 ml/min/1.73 sqM); Potassium 4.4 mmol/L (3.5-5.1); Sodium 136 mmol/L (137-145); Total Bilirubin 0.8 mg/dL (0.2-1.3); Total Protein 7.7 g/dL (6.3-8.2)
== END 2022-07-08 12:59 | disposition home or self-care (01) ==
LOC: EC 10:12
DX: U07.1 COVID-19 (principal); K21.9 Gastro-esophageal reflux disease without esophagitis; G47.30 Sleep apnea, unspecified; F32.A Depression, unspecified; Z87.891 Personal history of nicotine dependence; F12.90 Cannabis use, unspecified, uncomplicated; Z79.83 Long term (current) use of bisphosphonates; Z79.899 Other long term (current) drug therapy
CPT/HCPCS: 36415; 71046; 80053; 83735; 84484; 85025; 87635; 93005; 99285